=== PATIENT | male | born 1960 | race Caucasian/White ===

== ENCOUNTER 2018-01-08 11:00 | Outpatient (RCR) | payer BC, SELFPAY ==
--- NOTE | 2017-12-09 07:45 | HP.PTEVAL_ITS ---
Patient's Visit Information KACI MONCADA is a 57 year old M referred to Physical Therapy by Xiao Lorenzo NP.JAD with a diagnosis of S/P L3-L4 micro disectomy. Date of Evaluation: 12/06/17 Physical Therapist: Jeovany Sadler - Visit Plan Frequency: 2-3x /Week Duration: 4-6 Weeks Plan: Start with neutral spine core isometrics, wean from brace over next 3 weeks. Gradually progress lumbar ROM as tolerated. HS stretching bilat without dural effect. - Subjective Subjective: Pt. is here today for his initial evaluation with diagnosis of lumbar microdisectomy. Pt. has a R L3-L4 microdisectomy on 10/23/17. He had previously had one in August of the previous year and a fusion in 2011. Pt. reports going back to work after is last surgery and having increased pain with ultimately having marked R foot drop. He reports his foot drop as started to improve and is walking with minimal issues. He is pleased with his current progress. Pt. denies N/T in either LE. No changes in B/B. Pt. is to wear brace as needed, but wean from brace over the next 3 weeks. Pt. reports increased pain with: getting up and down, shaun in bed. He is still to not BLT at this point in time. 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 Pt. has to lift boxes upto 60lbs at work as well. Pt. is sleeping without issues and is hopeful to progress strength and ROM in order to get back to work without issues. Expected RTW date: January 15. - Pain R LOWER BACK Pain Intensity (Out of 10): 1 Pain Intensity Range: 4 - Objective POSTURE: Pt. has normal posture in stance. Pt. has slight reduced lumbar lordosis. Pt. has equal iliac crest heights. Pt. has equal wt. shift between bilateral LEs. PALPATION: Pt has well healed incision at lumbar spine, no signs of infection or redness. NEUROLOGICAL: Pt. has normal sensation to light and sharp touch of bilateral LEs. Pt. has 2+ achilles and patellar DTR bilaterally. Pt. is able to rise onf heels and toes without LOB, increased difficulty with R ankle DF in stance. ROM: lumbar spine: flexion min/mod loss ( tight), ext min loss (tight), SB R nil loss NE, SB L nil loss NW, rotation R min loss (tight), rotation L min loss (tight). Pt. has tight bilateral HS and tigth hip flexors bilat. Normal hip ROM noted. MMT: RLE- ankle PF 5/5, DF 4/5; knee- ext 4+/5, flexion 4+/5; hip- flexion 4/5 mild increase NW, abd 4/5, ext 4/ 5. LLE- ankle 5/5 throughout; knee 5/5 throghoutl hip- flexion 4+/5 mild increase NW, abd 4+/5, ext 4+/5. Core strength- poor+. GAIT: Pt. ambulates without AD. Pt. has normal step length, decreased tempo, has adequate R foot clearance, slight reduced control with R ankle DF with gait. STAIRS: Pt. negotiates with 1 HR with reciprocal pattern, marked RLE functional weakness with descending. - Goals Goal 1:: Pt. to be I with HEP. Goal Time Frame: 4-6 Weeks Goal 2:: Pt. to have increased lumbar ROM by 25% in all effected ranges of motion. Goal Time Frame: 4-6 Weeks Goal 3:: Pt. to walk and rise for chair without increase in symptoms. Goal Time Frame: 4-6 Weeks Goal 4:: Pt. to have increased BLE and core strength by 1/2 grade reducing stress applied to L/S with all functional mobility. Goal Time Frame: 4-6 Weeks Goal 5:: Pt. to ambulate unlimited distances without increase in symptoms. Goal Time Frame: 4-6 Weeks Goal 6:: Pt. to resume all work activities without increase in symptoms. Goal Time Frame: 4-6 Weeks - Rehabilitation Potential Physical Therapy Diagnosis: Pt. has signs and symptoms consistent with BLE/core weakness, lumbar hypombility, and gait difficulty after having a L3-L4 microdisectomy. Pt. would benefit from PT to increase lumbar ROM, wean from brace, increase core and BLE strength and progress tolerance to all walking and work related activities. Rehabilitation Potential: Excellent - Anticipated Interventions Patient/Client Instruction: Educate patient on: Condition, Plan of Care, Risk Factors, Benefits of Fitness Program For the Purpose of:: To foster healthy habits, To improve decision making, To facilitate caregiver knowledge, To improve self management, To prevent re-injury , To improve ability to perform tasks related to life management, To improve tolerance to ADL's Therapeutic Exercise to Include: Strength training, Power training, Endurance training, Postural training, Flexibilty training, Passive ROM, Active ROM, Dynamic Lumbar Stabilization For the Purpose of:: To decrease pain, To increase ROM, To improve nutrient delivery to tissue, To increase oxygenation perfusion, To improve muscle performance and motor function, To improve ability to perform ADL's, To improve health of tissue, To decrease soft tissue restriction, To increase flexibility/ ROM, To improve endurance IF ES: Yes Cryotherapy (ice pack, ice massage): Yes Thank you for the opportunity to evaluate your patient. For Medicare and Medicare HMO plans, please review the plan of care and approve it. It will need to be FAXED BACK to us at [phone] for Medicare purposes. Please let me know if there are questions or concerns regarding this plan of care. Physician Signature: Date:
--- NOTE | 2018-01-08 11:31 | HP.PTREVAL_ITS ---
Xiao Lorenzo, , RICHARD.JAD It has been my pleasure to treat KACI MONCADA over the last 12 visits for S/P L3- L4 micro disectomy. Please see the progress note below for an update on the physical therapy plan of care! Subjective: Pt. reports I am doing better today. Pt. reports using a topical cream the other day and having relief in his knees and back. Pt. reports having 2/10 pain currently in lumbar spine, its just an ache. Objective/Function: LUMBAR ROM- flexion min loss mild increase NW, ext nil loss NE, SB R nil loss NE, SB L nil loss NE, rotation R nil/min loss NE, rotation L nil/min loss NE. MMT- 5/5 throughout; core strength fair. GAIT- Pt. ambulates with slight R lateral lean during stance phase on R side. Pt. reports having mild incerase in symptosm during R stance phase. STAIRS- reciprocal without increase in symptoms no HR required. PAIN- 2/10 no increase with PT. Plan Plan: Pt. to follow up with physician tomorrow and determine best course of action and if further PT is required. Goals Goal 1:: Pt. to be I with HEP. Goal Time Frame: 4-6 Weeks Goal Progress: Goal Met Goal 2:: Pt. to have increased lumbar ROM by 25% in all effected ranges of motion. Goal Time Frame: 4-6 Weeks Goal Progress: Goal Met Goal 3:: Pt. to walk and rise for chair without increase in symptoms. Goal Time Frame: 4-6 Weeks Goal Progress: Goal Met Goal 4:: Pt. to have increased BLE and core strength by 1/2 grade reducing stress applied to L/S with all functional mobility. Goal Time Frame: 4-6 Weeks Goal Progress: Goal Met Goal 5:: Pt. to ambulate unlimited distances without increase in symptoms. Goal Time Frame: 4-6 Weeks Goal Progress: Progressing Goal 6:: Pt. to resume all work activities without increase in symptoms. Goal Time Frame: 4-6 Weeks Goal Progress: Progressing Anticipated Interventions Patient/Client Instruction: Educate patient on: Condition, Plan of Care, Risk Factors, Benefits of Fitness Program For the Purpose of:: To foster healthy habits, To improve decision making, To facilitate caregiver knowledge, To improve self management, To prevent re-injury , To improve ability to perform tasks related to life management, To improve tolerance to ADL's Therapeutic Exercise to Include: Strength training, Power training, Endurance training, Postural training, Flexibilty training, Passive ROM, Active ROM, Dynamic Lumbar Stabilization For the Purpose of:: To decrease pain, To increase ROM, To improve nutrient delivery to tissue, To increase oxygenation perfusion, To improve muscle performance and motor function, To improve ability to perform ADL's, To improve health of tissue, To decrease soft tissue restriction, To increase flexibility/ ROM, To improve endurance IF ES: Yes Cryotherapy (ice pack, ice massage): Yes Please do not hesitate to contact me at [phone] by phone or Fax: if you have questions or concerns regarding this new plan of care! Sincerely, Jeovany Sadler
--- NOTE | 2018-03-16 20:02 | HP.PTDCSUM ---
HP - PT D/C Summary It has been my pleasure to treat KACI MONCADA under orders from Xiao Lorenzo, , for the diagnosis of S/P L3-L4 micro disectomy for a total of 12 visit(s). Discharge Date: Please see the following information for a summary of their discharge status. - Subjective Subjective: Pt. reports I am doing better today. Pt. reports using a topical cream the other day and having relief in his knees and back. Pt. reports having 2/10 pain currently in lumbar spine, its just an ache. - Pain R LOWER BACK Pain Intensity (Out of 10): 2 - Overall Improvement % Improvement: 70 - Objective Objective/Function: LUMBAR ROM- flexion min loss mild increase NW, ext nil loss NE, SB R nil loss NE, SB L nil loss NE, rotation R nil/min loss NE, rotation L nil/min loss NE. MMT- 5/5 throughout; core strength fair. GAIT- Pt. ambulates with slight R lateral lean during stance phase on R side. Pt. reports having mild incerase in symptosm during R stance phase. STAIRS- reciprocal without increase in symptoms no HR required. PAIN- 2/10 no increase with PT. - Goals Goal 1:: Pt. to be I with HEP. Goal Progress: Goal Met Goal 2:: Pt. to have increased lumbar ROM by 25% in all effected ranges of motion. Goal Progress: Goal Met Goal 3:: Pt. to walk and rise for chair without increase in symptoms. Goal Progress: Goal Met Goal 4:: Pt. to have increased BLE and core strength by 1/2 grade reducing stress applied to L/S with all functional mobility. Goal Progress: Goal Met Goal 5:: Pt. to ambulate unlimited distances without increase in symptoms. Goal Progress: Progressing Goal 6:: Pt. to resume all work activities without increase in symptoms. Goal Progress: Progressing - Plan Plan: Pt. to follow up with physician tomorrow and determine best course of action and if further PT is required. - D/C Information If there are questions or concerns regarding this patient's physical therapy, please feel free to call me at [phone]. Thank you for the referral of this patient. Sincerely, Jeovany Sadler
== END 2018-01-08 19:00 | disposition home or self-care (01) ==
LOC: PT 11:00
PROVIDERS: Family Provider Family Medicine; PCP Family Medicine; Visit Provider Nurse Practitioner Acute Care
DX: Z98.890 Other specified postprocedural states (principal)
CPT/HCPCS: 97110; 97161

== ENCOUNTER → 2018-03-05 12:09 | Outpatient (CLI) | payer BC, SELFPAY ==
[2018-03-05 14:18] LABS: Anion Gap 8 (5-15); BUN 12 mg/dL (7-18); BUN/Creat Ratio 14.9 RATIO (10-20); Calcium,Total 8.6 mg/dL (8.5-10.1); Chloride 106 mmol/L (98-107); Cholesterol 181 mg/dL (200); Creatinine, Serum 0.81 mg/dL (0.70-1.30); EST Glomerular Filtration Rate 104 mL/min (>60); Est Glom Filt Rate - Afr Amer 126 mL/min (>60); Glucose 109 mg/dL (74-106); High Density Lipoprotein 75 mg/dL; Sodium Level 139 mmol/L (136-145); Triglycerides 72 mg/dL; Very Low Density Lipoprotein 14 mg/dL (5-40)
== END ==
PROVIDERS: Family Provider Family Medicine; PCP Family Medicine; Visit Provider Family Medicine
DX: I10 Essential (primary) hypertension (principal)
CPT/HCPCS: 36415; 80048; 80061

== ENCOUNTER → 2018-09-10 11:25 | Outpatient (CLI) | payer BC, SELFPAY ==
[2017-03-05 10:11] VITALS: BMI 25.0
[2018-09-10 14:21] LABS: Anion Gap 6 (5-15); BUN 12 mg/dL (7-18); Calcium,Total 8.4 mg/dL (8.5-10.1); Chloride 108 mmol/L (98-107); Cholesterol 198 mg/dL (200); Creatinine, Serum 0.75 mg/dL (0.70-1.30); EST Glomerular Filtration Rate 114 mL/min (>60); Est Glom Filt Rate - Afr Amer 137 mL/min (>60); Glucose 115 mg/dL (74-106); High Density Lipoprotein 82 mg/dL; Potassium 4.6 mmol/L (3.5-5.1); Sodium Level 139 mmol/L (136-145); Triglycerides 60 mg/dL; Very Low Density Lipoprotein 12 mg/dL (5-40)
--- OUTSIDE RECORDS SUMMARY | 2018-11-05 20:16 | XMS RPT_ITS ---
:1960 Author Organization OHIP Care Team Providers Name Role Phone Xiao Lorenzo NP-Shae Attending Unavailable Xiao Lorenzo NP-Shae Referring Unavailable Valentín Darby Primary Care Unavailable Valentín Darby Attending Unavailable Valentín Darby Primary Care Unavailable Valentín Darby Attending Unavailable Valentín Darby Primary Care Unavailable PROBLEMS PROBLEMS DATE TYPE CONDITION / CODE ATTENDING STATUS SOURCE 03/06/2018 Unknown I10 - Essential Valentín Darby Active Raji (primary) Formerly [facility], [facility] hypertension / Hospital I10(ICD-10) Repository 04/03/2018 Unknown Z98.890 - Other Opsitradha Active Raji 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 criteria. Please note revised GLUCOSE reference range effective 2017. LAB L501.1000 7-18 mg/dL Normal BUN 12 LAB L501.1100 0.70-1.30 mg/dL Normal CREAT,SERUM 0.75 Result Comment: The validity of the calculated GFR AND GFRAA in patients over 70 years has not been determined. Clinical correlation is essential. LAB L501.1110 >60 mL/min Normal EST GFR 114 Result Comment: Non- GFR Calc LAB L501.1115 >60 mL/min Normal EST GFR - AA 137 Result Comment: GFR Calc LAB L501.1300 10-20 RATIO Normal BUN/CRE 16.0 LAB L501.2200 8.5-10.1 mg/dL Low CA 8.4 LAB L501.5300 136-145 mmol/L NA Normal 139 LAB L501.5600 3.5-5.1 mmol/L K Normal 4.6 LAB L501.5900 98-107 mmol/L High CL 108 LAB L501.6100 21.0-32.0 mmol/L Normal CO2 25.0 LAB L501.6200 5-15 Normal GAP 6 Performed By: #### L500.2500, L500.4100 #### [facility] [address] [place], [place], [address] LIPID PROFILE Collected: 09/10/2018 Status: F Source: PALATINE 11:28 AM [facility] REPOSITORY TYPE CODE TESTS RESULT OUT OF RANGE REFERENCE UNITS LAB L501.4900 200 mg/dL Normal CHOL 198 Result Comment: <200 mg/dL Desirable 200-240 mg/dL Borderline >240 mg/dL High Risk LAB L501.5000 mg/dL Normal TRIG 60 Result Comment: The drugs N-Acetylcysteine and Metamizole may falsely depress this assay. Serum Triglycerides Reference Interval Normal <150 mg/dL Borderline high 150 - 199 mg/dL High 200 - 499 mg/dL Very High > or = 500 mg/dL LAB L501.6400 mg/dL Normal HDL 82 Result Comment: The drugs N-Acetylcysteine and Metamizole may falsely depress this assay. Reference Range HDL <40 mg/dL Low HDL Cholesterol HDL >or= 60 mg/dL High HDL Cholesterol LAB L501.6500 0-130 mg/dL Normal LDL 104 LAB L501.6600 5-40 mg/dL Normal VLDL 12 Performed By: #### L500.2500, L500.4100 #### [facility] [address] [place], [address] PT D/C SUMMARY (1) Observed: 03/16/2018 Status: F Source: PALATINE 8:02 PM [facility] REPOSITORY [facility] [address] [place], [place] [address] Fax REHABILITATION SERVICES DISCHARGE SUMMARY MR#: [id number] Acct: [id number] Name: KACI MONCADA Rep #: [id number] : 1960 57 From: Jeovany Sadler DPT Referring Dr.: Xiao Lorenzo Status: REG RCR Insurance: [email or web address] SELF PAY INSURANCE HP - PT D/C Summary It has been my pleasure to treat KACI MONCADA under orders from Xiao Lorenzo, , for the diagnosis of S/P L3-L4 micro disectomy for a total of 12 visit(s). Discharge Date: Please see the following information for a summary of their discharge status. - Subjective Subjective: Pt. reports I am doing better today. Pt. reports using a topical cream the other day and having relief in his knees and back. Pt. reports having 2/10 pain currently in lumbar spine, its just an ache. - Pain R LOWER BACK Pain Intensity (Out of 10): 2 - Overall Improvement % Improvement: 70 - Objective Objective/Function: LUMBAR ROM- flexion min loss mild increase NW, ext nil loss NE, SB R nil loss NE, SB L nil loss NE, rotation R nil/min loss NE, rotation L nil/min loss NE. MMT- 5/5 throughout; core strength fair. GAIT- Pt. ambulates with slight R lateral lean during stance phase on R side. Pt. reports having mild incerase in symptosm during R stance phase. STAIRS- reciprocal without increase in symptoms no HR required. PAIN- 2/10 no increase with PT. - Goals Goal 1:: Pt. to be I with HEP. Goal Progress: Goal Met Goal 2:: Pt. to have increased lumbar ROM by 25% in all effected ranges of motion. Goal Progress: Goal Met Goal 3:: Pt. to walk and rise for chair without increase in symptoms. Goal Progress: Goal Met Goal 4:: Pt. to have increased BLE and core strength by 1/2 grade reducing stress applied to L/S with all functional mobility. Goal Progress: Goal Met Goal 5:: Pt. to ambulate unlimited distances without increase in symptoms. Goal Progress: Progressing Goal 6:: Pt. to resume all work activities without increase in symptoms. Goal Progress: Progressing - Plan Plan: Pt. to follow up with physician tomorrow and determine best course of action and if further PT is required. - D/C Information If there are questions or concerns regarding this patient's physical therapy, please feel free to call me at [phone]. Thank you for the referral of this patient. Sincerely, Jeovany Sadler <Electronically signed by Jeovany Sadler DPT> 03/16/182001 CC: Xiao Darby MD CLS Signed BASIC METABOLIC Collected: 03/05/2018 Status: F Source: RAJI PROFILE (BMP) 12:09 PM [facility] REPOSITORY TYPE CODE TESTS RESULT OUT OF RANGE REFERENCE UNITS LAB L501.0100 74-106 mg/dL High GLU 109 Result Comment: Fasting Glucose result from 100 to 125 mg/dL suggests IMPAIRED HOMEOSTASIS per A.D.A. criteria. Please note revised GLUCOSE reference range effective 2017. LAB L501.1000 7-18 mg/dL Normal BUN 12 LAB L501.1100 0.70-1.30 mg/dL Normal CREAT,SERUM 0.81 Result Comment: The validity of the calculated GFR AND GFRAA in patients over 70 years has not been determined. Clinical correlation is essential. LAB L501.1110 >60 mL/min Normal EST GFR 104 Result Comment: Non- GFR Calc LAB L501.1115 >60 mL/min Normal EST GFR - AA 126 Result Comment: GFR Calc LAB L501.1300 10-20 RATIO Normal BUN/CRE 14.9 LAB L501.2200 8.5-10.1 mg/dL CA Normal 8.6 LAB L501.5300 136-145 mmol/L NA Normal 139 LAB L501.5600 3.5-5.1 mmol/L K Normal 5.0 Result Comment: Slight Hemolysis, Result may be falsely increased. LAB L501.5900 98-107 mmol/L Normal CL 106 LAB L501.6100 21.0-32.0 mmol/L Normal CO2 25.0 LAB L501.6200 5-15 Normal 8 GAP Performed By: #### L500.2500, L500.4100 #### [facility] [address] [place], [address] LIPID PROFILE Collected: 03/05/2018 Status: F Source: PALATINE 12:09 PM [facility] REPOSITORY TYPE CODE TESTS RESULT OUT OF RANGE REFERENCE UNITS LAB L501.4900 200 mg/dL Normal CHOL 181 Result Comment: <200 mg/dL Desirable 200-240 mg/dL Borderline >240 mg/dL High Risk LAB L501.5000 mg/dL Normal TRIG 72 Result Comment: The drugs N-Acetylcysteine and Metamizole may falsely depress this assay. Serum Triglycerides Reference Interval Normal <150 mg/dL Borderline high 150 - 199 mg/dL High 200 - 499 mg/dL Very High > or = 500 mg/dL LAB L501.6400 mg/dL Normal HDL 75 Result Comment: The drugs N-Acetylcysteine and Metamizole may falsely depress this assay. Reference Range HDL <40 mg/dL Low HDL Cholesterol HDL >or= 60 mg/dL High HDL Cholesterol LAB L501.6500 0-130 mg/dL Normal LDL 92 LAB L501.6600 5-40 mg/dL Normal VLDL 14 Performed By: #### L500.2500, L500.4100 #### [facility] [address] [place] [place], [address] RE-EVALUATION - PT (1) Observed: 01/08/2018 Status: F Source: PALATINE 11:31 AM [facility] REPOSITORY [facility] [address] [place], [place] [address] Fax REEVALUATION / MEDICARE RECERTIFICATION PHYSICAL THERAPY MR#: [id number] Acct: [id number] Name: KACI MONCADA Rep #: [id number] : 1960 57 From: Jeovany Sadler DPT Referring Dr.: Xiao Lorenzo Status: REG RCR Insurance: [employer] SELF PAY INSURANCE Xiao Lorenzo, , RICHARD.JAD It has been my pleasure to treat KACI MONCADA over the last 12 visits for S/P L3-L4 micro disectomy. Please see the progress note below for an update on the physical therapy plan of care! Subjective: Pt. reports I am doing better today. Pt. reports using a topical cream the other day and having relief in his knees and back. Pt. reports having 2/10 pain currently in lumbar spine, its just an ache. Objective/Function: LUMBAR ROM- flexion min loss mild increase NW, ext nil loss NE, SB R nil loss NE, SB L nil loss NE, rotation R nil/min loss NE, rotation L nil/min loss NE. MMT- 5/5 throughout; core strength fair. GAIT- Pt. ambulates with slight R lateral lean during stance phase on R side. Pt. reports having mild incerase in symptosm during R stance phase. STAIRS- reciprocal without increase in symptoms no HR required. PAIN- 2/10 no increase with PT. Plan Plan: Pt. to follow up with physician tomorrow and determine best course of action and if further PT is required. Goals Goal 1:: Pt. to be I with HEP. Goal Time Frame: 4-6 Weeks Goal Progress: Goal Met Goal 2:: Pt. to have increased lumbar ROM by 25% in all effected ranges of motion. Goal Time Frame: 4-6 Weeks Goal Progress: Goal Met Goal 3:: Pt. to walk and rise for chair without increase in symptoms. Goal Time Frame: 4-6 Weeks Goal Progress: Goal Met Goal 4:: Pt. to have increased BLE and core strength by 1/2 grade reducing stress applied to L/S with all functional mobility. Goal Time Frame: 4-6 Weeks Goal Progress: Goal Met Goal 5:: Pt. to ambulate unlimited distances without increase in symptoms. Goal Time Frame: 4-6 Weeks Goal Progress: Progressing Goal 6:: Pt. to resume all work activities without increase in symptoms. Goal Time Frame: 4-6 Weeks Goal Progress: Progressing Anticipated Interventions Patient/Client Instruction: Educate patient on: Condition, Plan of Care, Risk Factors, Benefits of Fitness Program For the Purpose of:: To foster healthy habits, To improve decision making, To facilitate caregiver knowledge, To improve self management, To prevent re-injury, To improve ability to perform tasks related to life management, To improve tolerance to ADL's Therapeutic Exercise to Include: Strength training, Power training, Endurance training, Postural training, Flexibilty training, Passive ROM, Active ROM, Dynamic Lumbar Stabilization For the Purpose of:: To decrease pain, To increase ROM, To improve nutrient delivery to tissue, To increase oxygenation perfusion, To improve muscle performance and motor function, To improve ability to perform ADL's, To improve health of tissue, To decrease soft tissue restriction, To increase flexibility/ROM, To improve endurance IF ES: Yes Cryotherapy (ice pack, ice massage): Yes Please do not hesitate to contact me at [phone] by phone or if you have questions or concerns regarding this new plan of care! Sincerely, Jeovany Sadler <Electronically signed by Jeovany Sadler DPT> 01/08/18 1131 CC: Xiao Lorenzo; Valentín Darby MD CLS Signed For Medicare only, by signing this I certify the plan of care. Physicians Signature Date INITAL EVALUATION (1) Observed: 12/09/2017 Status: F Source: PALATINE - PT 7:45 AM [facility] REPOSITORY [facility] [address] [place] [address] Fax REHABILITATION SERVICES INITIAL EVALUATION MR#: [id number] Acct: [id number] Name: KACI MONCADA Rep #: [id number] : 1960 57 From: Jeovany Sadler DPT Referring Dr.: Xiao Lorenzo Status: REG RCR Insurance: [employer] SELF PAY INSURANCE Patient's Visit Information KACI MONCADA is a 57 year old M referred to Physical Therapy by Xiao Lorenzo NP.KOPSIT with a diagnosis of S/P L3-L4 micro disectomy. Date of Evaluation: 12/06/17 Physical Therapist: Jeovany Sadler - Visit Plan Frequency: 2-3x /Week Duration: 4-6 Weeks Plan: Start with neutral spine core isometrics, wean from brace over next 3 weeks. Gradually progress lumbar ROM as tolerated. HS stretching bilat without dural effect. - Subjective Subjective: Pt. is here today for his initial evaluation with diagnosis of lumbar microdisectomy. Pt. has a R L3-L4 microdisectomy on 10/23/17. He had previously had one in August of the previous year and a fusion in 2011. Pt. reports going back to work after is last surgery and having increased pain with ultimately having marked R foot drop. He reports his foot drop as started to improve and is walking with minimal issues. He is pleased with his current progress. Pt. denies N/T in either LE. No changes in B/B. Pt. is to wear brace as needed, but wean from brace over the next 3 weeks. Pt. reports increased pain with: getting up and down, shaun in bed. He is still to not BLT at this point in time. 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 Pt. has to lift boxes upto 60lbs at work as well. Pt. is sleeping without issues and is hopeful to progress strength and ROM in order to get back to work without issues. Expected RTW date: January 15. - Pain R LOWER BACK Pain Intensity (Out of 10): 1 Pain Intensity Range: 4 - Objective POSTURE: Pt. has normal posture in stance. Pt. has slight reduced lumbar lordosis. Pt. has equal iliac crest heights. Pt. has equal wt. shift between bilateral LEs. PALPATION: Pt has well healed incision at lumbar spine, no signs of infection or redness. NEUROLOGICAL: Pt. has normal sensation to light and sharp touch of bilateral LEs. Pt. has 2+ achilles and patellar DTR bilaterally. Pt. is able to rise onf heels and toes without LOB, increased difficulty with R ankle DF in stance. ROM: lumbar spine: flexion min/mod loss (tight), ext min loss (tight), SB R nil loss NE, SB L nil loss NW, rotation R min loss (tight), rotation L min loss (tight). Pt. has tight bilateral HS and tigth hip flexors bilat. Normal hip ROM noted. MMT: RLE- ankle PF 5/5, DF 4/5; knee- ext 4+/5, flexion 4+/5; hip- flexion 4/5 mild increase NW, abd 4/5, ext 4/5. LLE- ankle 5/5 throughout; knee 5/5 throghoutl hip- flexion 4+/5 mild increase NW, abd 4+/5, ext 4+/5. Core strength- poor+. GAIT: Pt. ambulates without AD. Pt. has normal step length, decreased tempo, has adequate R foot clearance, slight reduced control with R ankle DF with gait. STAIRS: Pt. negotiates with 1 HR with reciprocal pattern, marked RLE functional weakness with descending. - Goals Goal 1:: Pt. to be I with HEP. Goal Time Frame: 4-6 Weeks Goal 2:: Pt. to have increased lumbar ROM by 25% in all effected ranges of motion. Goal Time Frame: 4-6 Weeks Goal 3:: Pt. to walk and rise for chair without increase in symptoms. Goal Time Frame: 4-6 Weeks Goal 4:: Pt. to have increased BLE and core strength by 1/2 grade reducing stress applied to L/S with all functional mobility. Goal Time Frame: 4-6 Weeks Goal 5:: Pt. to ambulate unlimited distances without increase in symptoms. Goal Time Frame: 4-6 Weeks Goal 6:: Pt. to resume all work activities without increase in symptoms. Goal Time Frame: 4-6 Weeks - Rehabilitation Potential Physical Therapy Diagnosis: Pt. has signs and symptoms consistent with BLE/core weakness, lumbar hypombility, and gait difficulty after having a L3- L4 microdisectomy. Pt. would benefit from PT to increase lumbar ROM, wean from brace, increase core and BLE strength and progress tolerance to all walking and work related activities. Rehabilitation Potential: Excellent - Anticipated Interventions Patient/Client Instruction: Educate patient on: Condition, Plan of Care, Risk Factors, Benefits of Fitness Program For the Purpose of:: To foster healthy habits, To improve decision making, To facilitate caregiver knowledge, To improve self management, To prevent re-injury, To improve ability to perform tasks related to life management, To improve tolerance to ADL's Therapeutic Exercise to Include: Strength training, Power training, Endurance training, Postural training, Flexibilty training, Passive ROM, Active ROM, Dynamic Lumbar Stabilization For the Purpose of:: To decrease pain, To increase ROM, To improve nutrient delivery to tissue, To increase oxygenation perfusion, To improve muscle performance and motor function, To improve ability to perform ADL's, To improve health of tissue, To decrease soft tissue restriction, To increase flexibility/ROM, To improve endurance IF ES: Yes Cryotherapy (ice pack, ice massage): Yes Thank you for the opportunity to evaluate your patient. For Medicare and Medicare HMO plans, please review the plan of care and approve it. It will need to be FAXED BACK to us at [phone] for Medicare purposes. Please let me know if there are questions or concerns regarding this plan of care. Physician Signature: Date: <Electronically signed by Jeovany OLIVEIRAT> 12/09/17 0745 CC: Xiao Lorenzo; Valentín Darby MD CLS Signed For Medicare only, by signing this I certify the plan of care. Physicians Signature Date ALLERGIES ALLERGIES DATE TYPE / CODE NAME / CODE REACTION SEVERITY SOURCE 03/05/2017 Drug No Known Unknown Raji [facility] Allergy/4160 Allergies/F00 [facility] 39855(SNOMED [id number](RXNOR Repository CT) M) ENCOUNTERS ENCOUNTERS ADMIT/DISCHARGE ACCOUNT ADMITTING ENCOUNTER LOCATION SOURCE NUMBER CLASS 09/10/2018 [id number] Ambulatory [place] [facility] ing:MFPLAB Repository 03/05/2018 [id number] Ambulatory Raji [place] [facility] ing:MFPLAB Repository 01/08/2018/ [id number] [place] [facility] ing:PT Repository PAYERS PAYERS ENCOUNTER GUARANTOR PAYER SUBSCRIBER SOURCE 09/10/2018 Kaci Umw771 Primary Kaci FoxDOB: Raji Owens Insurance:ANTHEMPolic [id number] [facility] [place] Number: Hospital [id number]: (330 [id number] Repository [phone] () Date:6573-16-78IC [address], [place] [address]SL: 09/10/2018 Secondary NOT GIVENUNK [place] Insurance:[facility]LF [facility]Y [facility]: Effective Repository Date:2018-09-10 03/05/2018 Kaci Moncada702 Primary Kaci MoncadaDOB: Raji Owens Insurance:ANTHEMPolic [id number] [facility] [place] [facility] [address]Qpc: (330 [id number] Repository [phone] () Date:5758-07-65RI [address], [place] [address]MC: 03/05/2018 Secondary NOT GIVENUNK Raji Insurance:SELF PAY [facility] Number: Effective Repository Date:2018-03-05 01/08/2018 Kaci Moncada702 Primary Kaci MoncadaDOB: Raji Owens Insurance:ANTHEMPolic [id number] [facility]: [facility] [id number]: (330 [id number] Repository [phone] () Date:[id number] [address], [place] [address]XG: 01/08/2018 Secondary NOT GIVENUNK Raji Insurance:SELF PAY [facility]: Effective Repository Date:2017-12-03
--- OUTSIDE RECORDS SUMMARY | 2018-11-05 20:16 | XMS RPT_ITS ---
:1960 Author Organization [facility] Address [address] [place] [id number] Phone Care Team Providers Name Role Phone Maura PEARL, Xiao Brown Reason for Visit Reason For Visit Description Start Date Postop - subsequent visit Preliminary reason for visit data, not yet signed by the author as of back post revision microdiscectomy right L3-L4 on 10/23/2017 Preliminary reason for visit data, not yet signed by the author as of Chief Complaint Chief Complaint Description Start Date back post revision microdiscectomy right L3-L4 on 10/23/2017 Preliminary chief complaint data, not yet signed by the author as of Instructions Instruction Description Start Date CompletedPlease follow-up with Primary Care Physician or Venue Manager for treatment or adjustment of medication regarding elevated blood pressure.Patient advised to follow-up with Primary Care Physician for BMI management. 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 SPECIALIST TABS Conditions or Problems Problem Name Problem Onset Status Entry Provider Comment Standard Annotate Code Date Date Description S/P lumbar 241437239 Active Xiao History of microdiscect (SNOMED CT) 11/07 11/07 [place] operative trish 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 CUT 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 OPERATOR procedure on lumbar spinal structure HNP 936176408 Active Tammi Carter Prolapsed REcurrent (herniated (SNOMED CT) 11/26 11/26 [place] lumbar L4-5 nucleus 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 CUT OFF SAW OPERATOR intervertebral pulposus), disc lumbar Right leg 427312266 Active Tammi Carter Monoparesis - Acute weakness (SNOMED CT) 11/12 11/12 [place] leg onset 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 CUT OFF SAW OPERATOR Low back 194740746 Active Tammi Carter Low back pain pain (SNOMED CT) 11/12 11/12 [place] 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 CUT OFF SAW OPERATOR 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 Xiao 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 CUT OFF SAW OPERATOR Lumbar disc 550443351 Active Xiao Lumbar disc herniation (SNOMED CT) 04/30 04/30 [place] prolapse with with 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 CUT OFF SAW OPERATOR radiculopathy radiculopath y History of 71660373869 Active Xiao History of PLIF lumbar 106 (SNOMED 04/30 04/30 [place] lumbar fusion spinal CT) 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 CUT OFF SAW OPERATOR fusion Allergies, Adverse Reactions, Alerts Observed no known allergies at Social History Concept Description Observation Name Observation Value Units Start Date Tobacco use and SMOK ADVICE Yes exposure Preliminary social history data, not yet signed by the author as of Vital Signs Date Name Value Unit Description BMI (Body Mass 26.60 kg/m2 Body Mass Index Index) [Ratio] Preliminary vital sign data, not yet signed by the author as of BP Diastolic 88 mm[Hg] blood pressure, diastolic Preliminary vital sign data, not yet signed by the author as of BP Diastolic 88 mm[Hg] blood pressure, diastolic, second observation Preliminary vital sign data, not yet signed by the author as of BP Systolic 153 mm[Hg] blood pressure, systolic Preliminary vital sign data, not yet signed by the author as of BP Systolic 151 mm[Hg] blood pressure, systolic, second observation Preliminary vital sign data, not yet signed by the author as of Heart Rate 82 /min pulse rate E&M Preliminary vital sign data, not yet signed by the author as of Height 180 cm height in centimeters E&M Preliminary vital sign data, not yet signed by the author as of Height 71 [in_us] height E&M Preliminary vital sign data, not yet signed by the author as of Weight Measured 86 kg weight in kilograms E&M Preliminary vital sign data, not yet signed by the author as of Weight Measured 190 [lb_av] weight E&M Preliminary vital sign data, not yet signed by the author as of Results Date Name Value Unit Range Flag Description Office Visit: Postop - subsequent visit, Rm: PT3 MEDS REVIEW Done Documentation of current medications (procedure) Preliminary observation data, not yet signed by the author as of SMOK ADVICE Yes Smoking cessation education (procedure) Preliminary observation data, not yet signed by the author as of Preliminary observation data, not yet signed by the author as of Clinical Summary: HMSPatientID OOP account number Procedures Code Procedure Name Date Entry Date G8730 Pain assessment documented as positive - follow-up documented G8427 Current medications documented 4004F Tobacco screening was positive - cessation counseling received G8417 BMI documented as above normal parameters - follow-up documented G8950 Blood pressure outside of normal parameters - follow-up documented [facility]-[id number] Patient Encounter Medications Administered No information available. Immunizations No information available. Advance Directives There may be information available, but it has not been provided by the sender. Assessments There may be information available, but it has not been provided by the sender. Review of Systems There may be information available, but it has not been provided by the sender. Family History There may be information available, but it has not been provided by the sender. History of Past Illness There may be information available, but it has not been provided by the sender. History of Present Illness There may be information available, but it has not been provided by the sender.
== END ==
PROVIDERS: Family Provider Family Medicine; PCP Family Medicine; Visit Provider Family Medicine
DX: I10 Essential (primary) hypertension (principal)
CPT/HCPCS: 36415; 80048; 80061

== ENCOUNTER 2018-12-10 11:23 | Day surgery (SDC) | payer BC, SELFPAY ==
[2018-12-01 09:34] VITALS: BMI 24.3
--- NOTE | 2018-12-10 11:38 | EKG12_ITS ---
Test Reason : PREOP Blood Pressure : / mmHG Vent. Rate : 073 BPM Atrial Rate : 073 BPM P-R Int : 150 ms QRS Dur : 102 ms QT Int : 378 ms P-R-T Axes : 059 052 043 degrees QTc Int : 416 ms Normal sinus rhythm Normal ECG When compared with ECG of 11-JAN-2012 13:09, No significant change was found Confirmed by SHERWIN FOWLER, JUSTIN ([id number]), manuscript editor TIN MURILLO ([id number]) on 12/16/2018 1:49:19 PM Referred By: Mayco Juarez Confirmed By:JUSTIN COURTNEY MD
[2018-12-10 11:52] VITALS: BP 117/71; PULSE 74; RESP 18; TEMP 37.4; O2SAT 97; BMI 23.0
[2018-12-10 11:53] LABS: Hematocrit 47.1 % (40-54); Hemoglobin 15.9 g/dl (13.0-16.5); Mean Corp Hgb Conc 33.8 g/gl (32-36); Mean Corpuscular Hgb 31.4 pg (27.0-32.0); Mean Corpuscular Volume 92.9 fL (80-94); Mean Platelet Vol. 9.1 fl (6.2-12.0); Platelet Count 263 K/mm3 (150-450); RBC Distribution Width CV 12.7 % (11.6-14.6); RBC Distribution Width SD 42.5 fl (35.1-43.9); Red Blood Count 5.07 M/mm3 (4.6-6.2); Scan Indicated on CBC? Y/N NO; White Blood Count 6.2 K/mm3 (4.4-11.0)
[2018-12-10 12:17] LABS: Anion Gap 3 (5-15); BUN 9 mg/dL (7-18); BUN/Creat Ratio 10.4 RATIO (10-20); Calcium,Total 8.8 mg/dL (8.5-10.1); Chloride 104 mmol/L (98-107); Creatinine, Serum 0.86 mg/dL (0.70-1.30); EST Glomerular Filtration Rate 96 mL/min (>60); Est Glom Filt Rate - Afr Amer 116 mL/min (>60); Estimated Creatinine Clearance 97.98 ml/min; Glucose 115 mg/dL (74-106); Potassium 5.2 mmol/L (3.5-5.1); Sodium Level 136 mmol/L (136-145)
[2018-12-10] MEDS: Bupivacaine Mpf 0.5% 30 ML VIAL (12:24)
[2018-12-10] MEDS: Cefazolin 2 GM in 0.9% Normal Saline 100 ML IV (13:02)
--- NOTE | 2018-12-10 13:17 | PCM.OPRPT ---
Problem List (1) Bilateral inguinal hernia (BIH) Status: Acute Qualifiers: Obstruction and gangrene presence: without obstruction or gangrene Recurrence: non-recurrent Qualified Code(s): K40.20 - Bilateral inguinal hernia, without obstruction or gangrene, not specified as recurrent Report of Operation Date of Procedure: 12/10/18 Pre-Operative Diagnosis: Left inguinal hernia Post-Operative Diagnosis: bilateral inguinal hernias Surgery/Procedure Performed:: Laparoscopic bilateral inguinal hernia repairs with mesh Type of Anesthesia:: General Anesthesiologist: Andrew Hoyt Estimated Blood Loss (mL): < 25 cc Description of Procedure: Was brought into the operating room placed in the supine position under excellent general trach intubation Torres catheter was placed the abdomen was sterilely prepped draped in usual fashion. Local was injected supraumbilically. Curvilinear incision was made. Dissection was carried down to the fascia. The fascia was grasped with a Mirna. Varies needle was placed inside the abdomen. The abdomen was insufflated to 15 torr. A 10/12 trocar was placed without difficulty. It was flank by 2 #5 trochars both placed under direct visualization without injury to underlying structures. SPECT in the pelvis he had an obvious left inguinal hernia and is a bruise to the right side he did indeed have a right inguinal hernia. And this went along with his history of noticing a bulge in the right inguinal area in the past. Was a small piece of omentum stuck into his hernia which I was easily able to remove on the left side. Patient was placed in the headdown and rotated to the right. I scored the peritoneum on the left. I dissected down to Gavin's ligament. I dissected laterally dissecting out the cord and vessel structures and bringing the hernia sac back into the intra-abdominal area. I had excellent hemostasis. I continued further laterally. I placed a large 3 DMax mesh on the left side. I tacked it to Gavin's ligament with a pro-tacker. I tacked it superiorly and laterally with sparing tax. I reperitonealized area covering the mesh completely. The bed was then rotated to the left side I scored the peritoneum on the right I dissected down to Gavin's ligament and then dissected laterally dissecting the hernia sac free from the cord and vessel structures. I dissected further laterally. I had excellent hemostasis. I placed a medium 3 DMax mesh into the right side. I tacked it to Gavin's ligament with a pro-tacker. I tacked it superiorly and laterally with the pro-tacker and then I reperitonealized the area with a pro-tacker covering the mesh completely. Ilioinguinal nerve blocks were performed under direct visualization. I removed the trochars under direct visualization good hemostasis was noted. I closed the fascia the umbilical port figure stitch of 0 Vicryl. Skin incisions were closed with subtalar stitches of 4-0 Monocryl. Steri-Strips are applied sterile dressings were applied and the patient tolerated the procedure well. I did do a general inspection I did not see any signs of adhesions anywhere in the liver did look normal. - Admit VTE Documentation VTE Present on Admission: No VTE Mechan Device Prophylaxis: SCD's VTE Pharm Prophylaxis ordered?: No Reason prophylaxis not ordered:: Treatment Not Indicated
--- NOTE | 2018-12-10 13:19 | DCINST_ITS ---
Discharge Diet: Light diet - advance as tolerated Discharge Activity: Return to Normal Activity, May Drive - when you are no longer taking narcotic pain medications., May Shower - with the bandage in place 1-2 days after surgery. Lifting Restrictions: 20 pounds for 8 weeks. Additional Activity Instructions:: Climbing stairs is fine, walking is encouraged. Sitting in bed may be uncomfortable. Sitting up using your lateral muscles (sitting up sideways) is usually more comfortable. Do not drive, work heavy equipment of sign legal documents for 24 hours. If your hernia repair was an ingunial repair, you may have scrotal swelling, an ice pack and/or athletic support can provide more comfort. Pain medications may cause nausea, you should typically eat light foods as you take your pain medications. Pain medications may also cause constipation. If you have difficulty with this, discuss with your doctor. Call your doctor if your incision/area has: Continuous Slow Oozing, Sudden Increased Bleeding, Increased Pain/ Swelling, Increased Redness, Foul Smelling Discharge Call your doctor if you observe: Fever of 101 or Higher Suture Line Care: Avoid Pulling/Pushing, Avoid Pinching/Bending Additional Dressing/Incision Instructions:: Leave the operative bandage on for 2-3 days. When you remove the bandage, leave the steri-strips on place until your follow up appointment or they fall off. Allergies/Adverse Reactions: Allergies No Known Allergies Allergy (Verified 12/10/18 11:50) Medications to take at Discharge Oxycodone HCl/Acetaminophen [Oxycodon-Acetaminophen 7.5-325] 1 ea PO TID 03/05/17 losartan 100 mg-hydrochlorothiazide 25 mg tablet 1 tab PO DAILY 12/01/18 meloxicam 15 mg tablet 15 mg PO DAILY 12/01/18 Oxycodone HCl/Acetaminophen [Percocet 10-325 mg Tablet] 1 tab PO Q6H PRN PRN 7 Days #30 tab 12/10/18 The following prescriptions were given: Oxycodone HCl/Acetaminophen [Percocet 10-325 mg Tablet] 1 tab PO Q6H PRN PRN 7 Days #30 tab PRN Reason: Pain Primary Care Physician: Valentín Darby MD [Primary Care Provider] - Test Results: Test results from this visit will be discussed in further detail at your follow- up appointment, if applicable. Please Follow Up With: Mayco Juarez MD - [phone] When: Plan to have a follow up appointment in 7 days. Call to schedule.
[2018-12-10 14:11] VITALS: BP 117/71; BP 128/73; PULSE 90; RESP 16; TEMP 36.8; O2SAT 92
[2018-12-10 14:30] VITALS: BP 106/51; BP 117/71; PULSE 72; RESP 16; O2SAT 93
[2018-12-10 14:45] VITALS: BP 117/71; BP 97/47; PULSE 72; RESP 16; O2SAT 93
[2018-12-10 14:57] VITALS: BP 117/71; BP 120/72; PULSE 76; RESP 16; TEMP 36.9; O2SAT 94
[2018-12-10] MEDS: Acetaminophen 325 MG Tablet PO (15:32)
[2018-12-10] MEDS: oxyCODONE 5 MG Tablet 10 MG PO (15:33)
[2018-12-10 15:35] VITALS: BP 117/71; BP 125/76; PULSE 71; RESP 16; TEMP 37.1; O2SAT 97
== END 2018-12-10 15:57 | disposition home or self-care (01) ==
LOC: SDC 11:29 → AC 11:35
PROVIDERS: Anesthesiology; Family Provider Family Medicine; PCP Family Medicine; Referring Provider Surgery; Visit Provider Surgery
PROC: (CPT 49650; principal; 2018-12-10 13:15)
DX: K40.20 Bilateral inguinal hernia, without obstruction or gangrene, not specified as recurrent (principal); I10 Essential (primary) hypertension; F17.200 Nicotine dependence, unspecified, uncomplicated; Z79.891 Long term (current) use of opiate analgesic; Z79.899 Other long term (current) drug therapy
CPT/HCPCS: 49650; 36415; 80048; 85027; 93005; J7030; J7120; C1781; J2405

== ENCOUNTER 2019-02-16 19:53 | Emergency (ER) | payer BC, SELFPAY ==
[2019-02-16 19:53] VITALS: BP 164/94; PULSE 111; RESP 18; TEMP 36.8; O2SAT 97; BMI 23.0
[2019-02-16] MEDS: diazePAM 5 MG Tablet PO (20:18)
[2019-02-16] MEDS: HYDROmorphone 1 MG/ML Syringe 0.5 MG IV (20:18)
[2019-02-16] MEDS: Ondansetron 4 MG/2 ML Vial IV (20:18)
[2019-02-16] MEDS: HYDROmorphone 0.5 MG/0.5 ML SYRINGE IV (21:27)
--- NOTE | 2019-02-16 23:08 | ED.VISSUMM ---
- ER Visit Summary Date of Service: 02/16/19 Chief Complaint: Back pain History of Present Illness: The patient is a 58 M with history of chronic back pain. He has had prior laminectomy and fusion. He reports increased back pain recently and just finished a Medrol Dosepak. Today the pain became significantly worse. He gets intermittent spasms of pain with pain shooting down the lateral portion of his right leg. He gets a burning sensation down to the right mid thigh. No problems with bowel or bladder control. He denies any recent injury. Patient does follow with a back specialist through the [facility]. He is currently on 1 tab of Percocet twice a day for pain. Physical Examination: Blood pressure is 164/94 and heart rate is 111. Patient sitting upright in bed in significant discomfort. Heart is regular rate and rhythm. Lungs sounds clear. Abdomen is soft and nontender. Back examination was no midline tenderness P does have significant tenderness in the right lumbar paraspinal region. No overlying skin change noted. Lower extreme examination reveals strong distal pulses. No skin changes noted. He has 2+ bilateral patellar reflexes with good strength noted on exam. Test Results: [] Emergency Department Course and Treatment: Patient was initially given 0.5 mg of Dilaudid, Zofran, 5 mg p.o. Valium. On repeat evaluation patient stated his pain was about half of what it was when he initially came in. He unfortunately did have worsening of his pain with increased spasm following this. He was given a an additional 0.5 mg of Dilaudid. At this time on repeat examination patient is resting comfortably. He states his pain is back down to his normal baseline daily pain. He will continue his Percocet at home. He will be given prescription for Valium to help control muscle spasm. Treatment Plan: [] Disposition: Discharge Impression: 1. Acute on chronic back pain 2. Lumbar radiculopathy This note was generated with [employer] dictation software. It may contain incorrect words, spelling, and punctuation that were not noted in review of the chart prior to signing ED Disposition - Plan for ED Patient: Disposition: Home or Assisted Living Instructions: ED Spasm Back No Trauma, ED Sciatica Prescriptions: Diazepam [Valium] 5 mg PO Q8 PRN #20 tablet PRN Reason: Muscle Spasm Referrals: Valentín Darby MD [Primary Care Provider] - Additional Instructions: Follow-up with your surgeon in [place]
[2019-02-16] MEDS: diazePAM 2 MG Tablet PO (23:25)
[2019-02-16 23:26] VITALS: BP 123/78; PULSE 71; RESP 16; O2SAT 98
== END 2019-02-16 23:32 | disposition home or self-care (01) ==
PROVIDERS: Emergency Provider Emergency Medicine; Family Provider Family Medicine; PCP Family Medicine
DX: M54.16 Radiculopathy, lumbar region (principal); G89.29 Other chronic pain; M54.5 Low back pain; I10 Essential (primary) hypertension; Z72.0 Tobacco use
CPT/HCPCS: 96374; 96375; 96376; 99284; A4216; J2405

== ENCOUNTER → 2019-02-27 | Outpatient (CLI) | payer BC, SELFPAY ==
[2019-02-16 19:53] VITALS: BMI 23.0
[2019-02-27 15:40] LABS: Anion Gap 8 (5-15); BUN 9 mg/dL (7-18); BUN/Creat Ratio 10.9 RATIO (10-20); Calcium,Total 9.3 mg/dL (8.5-10.1); Chloride 103 mmol/L (98-107); Cholesterol 178 mg/dL (200); Creatinine, Serum 0.82 mg/dL (0.70-1.30); EST Glomerular Filtration Rate 102 mL/min (>60); Est Glom Filt Rate - Afr Amer 123 mL/min (>60); Glucose 90 mg/dL (74-106); High Density Lipoprotein 58 mg/dL; Potassium 4.6 mmol/L (3.5-5.1); Sodium Level 138 mmol/L (136-145); Triglycerides 140 mg/dL; Very Low Density Lipoprotein 28 mg/dL (5-40)
== END | disposition home or self-care (01) ==
LOC: MFPLAB 12:26
PROVIDERS: Family Provider Family Medicine; PCP Family Medicine; Referring Provider Family Medicine; Visit Provider Family Medicine
DX: M48.061 Spinal stenosis, lumbar region without neurogenic claudication (principal); I10 Essential (primary) hypertension
CPT/HCPCS: 36415; 80048; 80061

== ENCOUNTER → 2019-09-01 17:50 | Outpatient (CLI) | payer BC, SELFPAY | PROVIDERS: Family Provider Family Medicine; PCP Family Medicine; Referring Provider Family Medicine; Visit Provider Family Medicine | DX: L03.012 Cellulitis of left finger (principal) | CPT/HCPCS: 87070; 87077; 87186; 87205 ==

== ENCOUNTER → 2019-12-02 10:42 | Outpatient (CLI) | payer BC, SELFPAY ==
[2019-12-02 10:32] VITALS: BMI 24.4
--- NOTE | 2019-12-02 10:43 | RAD_ITS ---
HISTORY: LEFT ARM AND FINGERS NUMBNESS. NO INJURY TECHNIQUE: Cervical spine 5 views Number of images including paperwork: 5 COMPARISON: None FINDINGS: VERTEBRAE: No acute fracture. VERTEBRAL ALIGNMENT: No traumatic subluxation. Approximately 2 mm of degenerative anterolisthesis of C4 on C5. DISKS AND JOINTS: Severe discogenic degenerative changes at C5-6 and C6-7. Facet arthropathy. Mild multilevel bilateral foraminal stenosis, evaluation, limited by obliquity. SOFT TISSUES: Unremarkable paraspinous soft tissues. RAD/Cerv Spine 4 or 5 Views IMPRESSION: No acute osseous abnormality. Cervical spondylosis. at 0544 Reported and signed by: Anuradha Jones MD Electronically Signed: Anuradha Jones MD at 5:44 EST Tel , Service support ,
== END ==
LOC: HPRAD 10:43
PROVIDERS: PCP Family Medicine; Referring Provider Orthopaedic Surgery; Visit Provider Orthopaedic Surgery
DX: R20.0 Anesthesia of skin (principal)
CPT/HCPCS: 72050

== ENCOUNTER → 2019-12-29 | Outpatient (CLI) | payer BC, SELFPAY ==
[2019-12-02 10:32] VITALS: BMI 24.4
[2019-12-29 18:29] LABS: Amphetamine Urine VISTA NEGATIVE (<1000 ng/mL); Barbiturate Urine VISTA NEGATIVE (< 200 ng/mL); Benzodiazepine Urine VISTA NEGATIVE (< 200 ng/mL); Cocaine Urine VISTA NEGATIVE (< 300 ng/mL); Ecstacy Urine VISTA NEGATIVE (< 500 ng/mL); Methadone Urine VISTA NEGATIVE (< 300 ng/mL); PCP Urine VISTA NEGATIVE (< 25 ng/mL); THC Urine VISTA NEGATIVE (< 50 ng/mL); Vista UDS pH Range 7
== END | disposition home or self-care (01) ==
LOC: LAB 16:44
PROVIDERS: PCP Family Medicine; Referring Provider Anesthesiology Pain Medicine; Visit Provider Anesthesiology Pain Medicine
DX: F11.20 Opioid dependence, uncomplicated (principal)
CPT/HCPCS: 80307

== ENCOUNTER → 2020-03-02 14:19 | Outpatient (CLI) | payer BC, SELFPAY ==
[2019-12-02 10:32] VITALS: BMI 24.4
[2020-03-02 15:59] LABS: Anion Gap 6 (5-15); BUN 7 mg/dL (7-18); Calcium,Total 8.7 mg/dL (8.5-10.1); Chloride 103 mmol/L (98-107); Cholesterol 194 mg/dL (200); Creatinine, Serum 0.78 mg/dL (0.70-1.30); EST Glomerular Filtration Rate 108 mL/min (>60); Est Glom Filt Rate - Afr Amer 130 mL/min (>60); Glucose 114 mg/dL (74-106); High Density Lipoprotein 91 mg/dL; Sodium Level 135 mmol/L (136-145); Triglycerides 119 mg/dL; Very Low Density Lipoprotein 24 mg/dL (5-40)
== END ==
PROVIDERS: PCP Family Medicine; Referring Provider Family Medicine; Visit Provider Family Medicine
DX: I10 Essential (primary) hypertension (principal)
CPT/HCPCS: 36415; 80048; 80061

== ENCOUNTER → 2020-06-16 | Outpatient (CLI) | payer BC, SELFPAY ==
[2019-12-02 10:32] VITALS: BMI 24.4
--- NOTE | 2020-06-16 12:40 | RAD_ITS ---
STUDY: X-RAY - PELVIS AND BILATERAL HIPS REASON FOR EXAM: Male, 59 years old. BILATERAL AND LOWER BACK PAIN, HX OF 3 BACK SURGERIES- INCLUDING FUSION AND DISCECTOMY AND DECOMPRESSION -- WORSENING BILATERAL HIP PAIN, RIGHT WORSE THAN LEFT TECHNIQUE: AP view of the pelvis.? 2 views of the right hip, and 2 views of the left hip were obtained. COMPARISON: None. FINDINGS: There is a non-specific bowel gas pattern. Numerous peritoneal tacks are seen related to previous bilateral inguinal hernia repairs. There has been extensive lumbar spine surgery. Normal bilateral iliac wings, sacroiliac joints and visualized sacrum. Normal bilateral superior and inferior pubic rami. Normal pubic symphysis. Normal bilateral ischial tuberosities. Normal visualized right femoral head. Normal right acetabulum. Normal right hip joint. Normal visualized left femoral head. Normal left acetabulum. Normal left hip joint. RAD/Hips B/L min 2 views w/ Pelvis IMPRESSION: Normal x-ray examination of the pelvis and bilateral hips. Electronically Signed: Demarco Mcfarland MD at 17:15 EDT , Service support ,
== END | disposition home or self-care (01) ==
LOC: RAD 12:32
PROVIDERS: PCP Family Medicine; Referring Provider Anesthesiology Pain Medicine; Visit Provider Anesthesiology Pain Medicine
DX: M25.551 Pain in right hip (principal); M25.552 Pain in left hip; M54.9 Dorsalgia, unspecified
CPT/HCPCS: 73521

== ENCOUNTER 2020-07-08 09:57 | Emergency (ER) | payer BC, SELFPAY ==
[2019-12-02 10:32] VITALS: BMI 24.4
[2020-07-08 09:58] VITALS: BP 157/86; PULSE 110; RESP 17; TEMP 36.3; O2SAT 98; BMI 24.4
--- NOTE | 2020-07-08 10:22 | RAD_ITS ---
STUDY: X-RAY - RIGHT SHOULDER REASON FOR EXAM: Male, 59 years old. pt. states no injury, however pain level is high, low range of motion TECHNIQUE: 4 view(s) of the shoulder. COMPARISON: None. FINDINGS: Normal glenohumeral articulation. There is hypertrophic osteoarthrosis of the acromioclavicular joint with inferior osseous spur formation. Normal acromion. Normal humeral head and visualized proximal humerus. The soft tissue structures are unremarkable. Normal visualized pulmonary apex. RAD/Shoulder min 2 Views IMPRESSION: Degenerative arthrosis of the right acromioclavicular joint. Electronically Signed: Willam Richter, at 10:43 EDT , Service support ,
[2020-07-08] MEDS: Ondansetron ODT 4 MG Tablet PO (10:35)
[2020-07-08] MEDS: HYDROmorphone 1 MG/ML Syringe IM (10:35)
--- NOTE | 2020-07-08 10:44 | ED.VISSUMM ---
- ER Visit Summary Date of Service: 07/08/20 Chief Complaint: Right shoulder pain History of Present Illness: The patient is a [address] Valentín Sy and Dr. Botello. He reports that he has right shoulder pain that began 5 days ago. Is a sharp pain is 10 of 10 at worst and 6 out of 10 currently. Is worsened by movement. Is relieved by rest and Percocet. He denies any trauma. No fall, MVA, or change in activity. He denies any paresthesias or weakness. He denies any fever or chills. No chest pain or shortness of breath. 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 Physical Examination: Vitals: Stable. Afebrile. General: Well-nourished and well-developed. Head: Normocephalic atraumatic. Neck: Supple, no lymphadenopathy. No JVD. Nontender. Cardiovascular: Regular rate and rhythm. No murmurs. Respiratory: No respiratory distress. Clear to auscultation bilaterally. Abdominal: Soft, nontender, nondistended, normal bowel sounds. No guarding, rebound, or peritoneal signs. Back: Nontender. Extremities: Mild diffuse tenderness outpatient over his entire deltoid. No pain over his clavicle. There is no erythema or warmth to suggest a septic joint. He has minimal pain with short arc movements. He has pain with abduction that causes decreased range of motion. This is much worse with active abduction and passive. He is neuro vas intact distally. There is normal sensation light touch, less than 2-second cap refill. He has a 2+ radial pulse. Skin: Normal color, no rash. Neurologic: Alert and oriented ?3. Cranial nerves II through XII are intact. Normal strength and sensation. Psych: Normal affect. Test Results: X-ray shows degenerative changes. Emergency Department Course and Treatment: Patient was treated with Dilaudid and Zofran. He is resting more comfortably. Treatment Plan: Patient is already on extended release and immediate release oxycodone. I do not feel that adding more to this is warranted. He will be discharged instructions to follow-up with Dr. Curry Rowan in 1 week for another exam. He is gone to the [facility] previously and I suggested that he see Dr. Covington or Dr. Pineda there for his shoulder. Return to the emergency department for any worsening symptoms. Disposition: To home in improved and stable condition. Impression: 1. Right shoulder pain, acute. This note was generated with [employer] dictation software. It may contain incorrect words, spelling, and punctuation that were not noted in review of the chart prior to signing ED Disposition - Plan for ED Patient: Instructions: ED Shoulder Pain Uncertain Cause Referrals: Curry Rowan MD [STAFF PHYSICIAN] - 3-5 Days Additional Instructions: Follow-up with Dr. Covington or Dr. Pineda at [facility] they are both shoulder specialist. The phone number is [phone].
[2020-07-08 10:58] VITALS: BP 147/89; PULSE 81; RESP 16; O2SAT 99
== END 2020-07-08 11:09 | disposition home or self-care (01) ==
LOC: ED 10:43
PROVIDERS: Emergency Provider Emergency Medicine; PCP Family Medicine
DX: M25.511 Pain in right shoulder (principal); I10 Essential (primary) hypertension; M54.9 Dorsalgia, unspecified; G89.29 Other chronic pain; Z72.0 Tobacco use; Z79.891 Long term (current) use of opiate analgesic; Z79.899 Other long term (current) drug therapy
CPT/HCPCS: 73030; 96372; 99283

== ENCOUNTER → 2020-12-14 12:54 | Outpatient (CLI) | payer BC, SELFPAY ==
[2020-10-17 10:24] VITALS: BMI 25.1
--- NOTE | 2020-12-14 12:59 | EKG12_ITS ---
Test Reason : PREOP Blood Pressure : / mmHG Vent. Rate : 074 BPM Atrial Rate : 074 BPM P-R Int : 152 ms QRS Dur : 100 ms QT Int : 382 ms P-R-T Axes : 074 052 041 degrees QTc Int : 424 ms Normal sinus rhythm Normal ECG Confirmed by SHERWIN FOWLER, JUSTIN ([id number]), technical writer and editor MUNA COLVIN ([id number]) on 12/15/2020 1:01:46 PM Referred By: Curry Rowan Confirmed By:JUSTIN COURTNEY MD
--- NOTE | 2020-12-14 13:11 | RAD_ITS ---
STUDY: X-RAY CHEST REASON FOR EXAM: Male, 60 years old. PRE OP TECHNIQUE: PA and lateral views of the chest. COMPARISON: Hyperinflation. The lungs are clear. FINDINGS: The lungs are clear and expanded. There is no demonstrated pleural abnormality. Normal size heart. Normal mediastinum and john paul. Normal visualized pulmonary arteries. Normal visualized aortic arch and descending thoracic aorta. Normal visualized thoracic spine. Normal visualized ribs, clavicles, and shoulders. There is no demonstrated abnormality of the visualized soft tissue structures of the upper abdomen. RAD/Chest PA and Lateral IMPRESSION: Hyperinflation. The lungs are clear. Electronically Signed: Willam Richter MD at 15:38 EST , Service support ,
[2020-12-14 15:01] LABS: Anion Gap 6 (5-15); BUN 7 mg/dL (7-18); BUN/Creat Ratio 8.1 RATIO (10-20); Calcium,Total 9.1 mg/dL (8.5-10.1); Chloride 103 mmol/L (98-107); Creatinine, Serum 0.86 mg/dL (0.70-1.30); EST Glomerular Filtration Rate 96 mL/min (>60); Est Glom Filt Rate - Afr Amer 116 mL/min (>60); Glucose 105 mg/dL (74-106); Potassium 3.9 mmol/L (3.5-5.1); Sodium Level 138 mmol/L (136-145)
== END ==
LOC: LABSPEC 13:07 → RAD 13:18
PROVIDERS: PCP Family Medicine; Referring Provider Orthopaedic Surgery; Visit Provider Physician Assistant
DX: Z01.810 Encounter for preprocedural cardiovascular examination (principal); I10 Essential (primary) hypertension; F17.200 Nicotine dependence, unspecified, uncomplicated; Z11.52 Encounter for screening for COVID-19
CPT/HCPCS: 36415; 71046; 80048; 87635; 93005; C9803; U0002; U0003

== ENCOUNTER → 2021-04-06 13:48 | Outpatient (CLI) | payer BC, SELFPAY ==
[2020-10-17 10:24] VITALS: BMI 25.1
[2021-04-06 16:03] LABS: Anion Gap 5 (5-15); BUN 7 mg/dL (7-18); BUN/Creat Ratio 9.1 RATIO (10-20); Calcium,Total 8.9 mg/dL (8.5-10.1); Chloride 105 mmol/L (98-107); Cholesterol 168 mg/dL (200); Creatinine, Serum 0.77 mg/dL (0.70-1.30); EST Glomerular Filtration Rate 109 mL/min (>60); Est Glom Filt Rate - Afr Amer 132 mL/min (>60); Glucose 103 mg/dL (74-106); High Density Lipoprotein 75 mg/dL; Sodium Level 137 mmol/L (136-145); Triglycerides 46 mg/dL; Very Low Density Lipoprotein 9 mg/dL (5-40)
== END ==
PROVIDERS: PCP Family Medicine; Referring Provider Family Medicine; Visit Provider Family Medicine
DX: I10 Essential (primary) hypertension (principal)
CPT/HCPCS: 36415; 80048; 80061

== ENCOUNTER → 2021-05-02 11:21 | Outpatient (CLI) | payer BC, SELFPAY ==
[2020-10-17 10:24] VITALS: BMI 25.1
[2021-05-02 15:49] LABS: Anion Gap 7 (5-15); BUN 9 mg/dL (7-18); BUN/Creat Ratio 11.7 RATIO (10-20); Chloride 103 mmol/L (98-107); Creatinine, Serum 0.77 mg/dL (0.70-1.30); EST Glomerular Filtration Rate 110 mL/min (>60); Est Glom Filt Rate - Afr Amer 133 mL/min (>60); Glucose 124 mg/dL (74-106); Potassium 4.1 mmol/L (3.5-5.1); Sodium Level 132 mmol/L (136-145)
== END ==
PROVIDERS: PCP Family Medicine; Visit Provider Orthopaedic Surgery
DX: M54.5 Low back pain (principal)
CPT/HCPCS: 36415; 80048

== ENCOUNTER → 2021-08-10 15:52 | Outpatient (CLI) | payer BC, SELFPAY ==
[2021-08-10 17:56] LABS: Absolute Lymphocyte Count 2.12 X10^3/uL (0.83-4.51); Absolute Neutrophil Count 5.4 X10^3/uL (2.0-7.7); Basophil# 0.07 X10^3/uL; Basophil% 0.8 % (0-1); Eosinophil# 0.04 X10^3/uL; Eosinophils% 0.5 % (0-5); Hematocrit 52.1 % (40-54); Hemoglobin 17.8 g/dL (13.0-16.5); Lymphocyte # 2.12 X10^3/ul (0.83-4.51); Lymphocyte % 25.4 % (19-41); Mean Corp Hgb Conc 34.2 g/dL (32-36); Mean Corpuscular Hgb 31.6 pg (27.0-32.0); Mean Corpuscular Volume 92.5 fL (80-94); Mean Platelet Vol. 9.3 fl (6.2-12.0); Monocyte# 0.72 X10^3/uL; Monocyte% 8.6 % (0-10); NRBC Flagged by Analyzer 0 % (0-5); Neutrophil # 5.36 X10^3/uL (2.7-7.7); Neutrophil % 64.2 % (47-70); Platelet Count 313 K/mm3 (150-450); RBC Distribution Width CV 11.9 % (11.6-14.6); RBC Distribution Width SD 41.1 fl (35.1-43.9); Red Blood Count 5.63 M/mm3 (4.6-6.2); White Blood Count 8.4 K/mm3 (4.4-11.0)
[2021-08-10 18:17] LABS: AST(SGOT) 51 U/L (15-37); Alanine Aminotransfer ALT/SGPT 114 U/L (16-61); Alkaline Phosphatase 97 U/L (45-117); Anion Gap 8 (5-15); BUN 7 mg/dL (7-18); BUN/Creat Ratio 8.6 RATIO (10-20); Calcium,Total 9.4 mg/dL (8.5-10.1); Chloride 100 mmol/L (98-107); Creatinine, Serum 0.81 mg/dL (0.70-1.30); EST Glomerular Filtration Rate 102 mL/min (>60); Est Glom Filt Rate - Afr Amer 124 mL/min (>60); Glucose 103 mg/dL (74-106); Sodium Level 134 mmol/L (136-145)
[2021-08-10 18:18] LABS: International Normalized Ratio 0.9; Prothrombin Time (Protime)PT. 11.9 SECONDS (11.7-14.9)
== END ==
PROVIDERS: PCP Family Medicine; Referring Provider Family Medicine; Visit Provider Family Medicine
DX: Z01.818 Encounter for other preprocedural examination (principal)
CPT/HCPCS: 36415; 80053; 85025; 85610

== ENCOUNTER → 2022-04-11 | Outpatient (CLI) | payer MEDICARE, SELFPAY ==
[2022-04-11 13:01] LABS: Anion Gap 6 (5-15); BUN 6 mg/dL (7-18); BUN/Creat Ratio 7.3 RATIO (10-20); Calcium,Total 8.8 mg/dL (8.5-10.1); Chloride 104 mmol/L (98-107); Cholesterol 151 mg/dL (200); Creatinine, Serum 0.82 mg/dL (0.70-1.30); EST Glomerular Filtration Rate 101 mL/min (>60); Est Glom Filt Rate - Afr Amer 122 mL/min (>60); Glucose 111 mg/dL (74-106); High Density Lipoprotein 63 mg/dL; Potassium 4.2 mmol/L (3.5-5.1); Sodium Level 134 mmol/L (136-145); Triglycerides 68 mg/dL; Very Low Density Lipoprotein 14 mg/dL (5-40)
== END | disposition home or self-care (01) ==
LOC: MFPLAB 11:16
PROVIDERS: PCP Family Medicine; Visit Provider Family Medicine
DX: I10 Essential (primary) hypertension (principal)
CPT/HCPCS: 36415; 80048; 80061

== ENCOUNTER 2022-11-23 09:16 | Day surgery (SDC) | payer MEDICARE, SELFPAY ==
[2022-11-23] MEDS: Lactated Ringers 1,000 ML 15 ML IV (09:40)
[2022-11-23 09:50] VITALS: BP 135/75; PULSE 78; RESP 18; TEMP 36.5; O2SAT 99; BMI 25.0
[2022-11-23] MEDS: Cefazolin 2 GM in 0.9% Normal Saline 100 ML IV (10:55)
--- NOTE | 2022-11-23 11:08 | RAD_ITS ---
STUDY: X-RAY - LUMBAR SPINE REASON FOR EXAM: Male, 62 years old. INSERTION, PAIN PUMP, IMPLANTABLE TECHNIQUE: 2 intraoperative view(s) of the lumbar spine were obtained. COMPARISON: None FINDINGS: Intraoperative imaging provided for pain pump placement. RAD/Spine 1 View Any Level IMPRESSION: Intraoperative images are provided for pain pump placement. Electronically Signed: Willam Richter MD at 14:02 EST ,
[2022-11-23 12:30] VITALS: BP 113/92; BP 135/75; PULSE 82; RESP 18; TEMP 36.6; O2SAT 95
[2022-11-23 12:45] VITALS: BP 100/69; BP 135/75; PULSE 76; RESP 16; O2SAT 97
[2022-11-23 13:00] VITALS: BP 135/75; BP 90/60; PULSE 74; RESP 16; O2SAT 94
[2022-11-23 13:15] VITALS: BP 108/61; BP 135/75; PULSE 72; RESP 16; TEMP 36.6; O2SAT 93
[2022-11-23] MEDS: Acetaminophen 325 MG Tablet 650 MG PO (14:06)
[2022-11-23] MEDS: oxyCODONE 5 MG Tablet 10 MG PO (14:07)
[2022-11-23 14:31] VITALS: BP 135/75; BP 147/81; PULSE 69; RESP 16; TEMP 36.6; O2SAT 94
== END 2022-11-23 14:45 | disposition home or self-care (01) ==
LOC: SDC 09:21 → AC 09:24
PROVIDERS: PCP Family Medicine; Referring Provider Anesthesiology Pain Medicine; Visit Provider Anesthesiology Pain Medicine
PROC: (CPT 62362; principal; 2022-11-23 10:30)
DX: G89.4 Chronic pain syndrome (principal); M96.1 Postlaminectomy syndrome, not elsewhere classified; I10 Essential (primary) hypertension; Z87.891 Personal history of nicotine dependence
CPT/HCPCS: 62362; 62350; 00630; 72020; 76000; C1713; J7120; J2274; J2405; J3490

== ENCOUNTER → 2023-04-04 | Outpatient (CLI) | payer MEDICARE, SELFPAY ==
[2023-04-04 16:12] LABS: Anion Gap 6 (5-15); BUN 5 mg/dL (7-18); BUN/Creat Ratio 7.3 RATIO (10-20); Calcium,Total 8.9 mg/dL (8.5-10.1); Chloride 100 mmol/L (98-107); Cholesterol 163 mg/dL (200); Creatinine, Serum 0.68 mg/dL (0.70-1.30); EST Glomerular Filtration Rate 125 mL/min (>60); Est Glom Filt Rate - Afr Amer 151 mL/min (>60); Glucose 102 mg/dL (74-106); High Density Lipoprotein 81 mg/dL; Potassium 3.9 mmol/L (3.5-5.1); Sodium Level 133 mmol/L (136-145); Triglycerides 54 mg/dL; Very Low Density Lipoprotein 11 mg/dL (5-40)
== END | disposition home or self-care (01) ==
LOC: MFPLAB 11:11
PROVIDERS: PCP Family Medicine; Visit Provider Family Medicine
DX: I10 Essential (primary) hypertension (principal)
CPT/HCPCS: 36415; 80048; 80061

== ENCOUNTER → 2023-09-30 | Outpatient (CLI) | payer MEDICARE, SELFPAY ==
[2023-09-30 16:44] LABS: Anion Gap 5 (5-15); BUN 8 mg/dL (7-18); BUN/Creat Ratio 9.7 RATIO (10-20); Calcium,Total 9.1 mg/dL (8.5-10.1); Chloride 107 mmol/L (98-107); Cholesterol 163 mg/dL (200); Creatinine, Serum 0.82 mg/dL (0.70-1.30); EST Glomerular Filtration Rate 100 mL/min (>60); Est Glom Filt Rate - Afr Amer 121 mL/min (>60); Glucose 115 mg/dL (74-106); High Density Lipoprotein 79 mg/dL; Potassium 4.5 mmol/L (3.5-5.1); Sodium Level 138 mmol/L (136-145); Thyroid Stim Hormone (TSH) 1.68 uIU/mL (0.358-3.74); Triglycerides 48 mg/dL; Very Low Density Lipoprotein 10 mg/dL (5-40)
== END | disposition home or self-care (01) ==
LOC: MFPLAB 11:25
PROVIDERS: PCP Family Medicine; Visit Provider Family Medicine
DX: I10 Essential (primary) hypertension (principal); F32.A Depression, unspecified
CPT/HCPCS: 36415; 80048; 80061; 84443

== ENCOUNTER → 2024-10-01 | Outpatient (CLI) | payer MEDICARE, SELFPAY ==
[2024-10-01 16:03] LABS: Anion Gap 6 (5-15); BUN 9 mg/dL (7-18); BUN/Creat Ratio 11.6 RATIO (10-20); Calcium,Total 9.2 mg/dL (8.5-10.1); Chloride 96 mmol/L (98-107); Cholesterol 155 mg/dL (200); Creatinine, Serum 0.78 mg/dL (0.70-1.30); EST Glomerular Filtration Rate 107 mL/min (>60); Est Glom Filt Rate - Afr Amer 129 mL/min (>60); Glucose 115 mg/dL (74-106); High Density Lipoprotein 73 mg/dL; Potassium 3.8 mmol/L (3.5-5.1); Sodium Level 128 mmol/L (136-145); Triglycerides 57 mg/dL; Very Low Density Lipoprotein 11 mg/dL (5-40)
== END | disposition home or self-care (01) ==
PROVIDERS: PCP Family Medicine; Referring Provider Family Medicine; Visit Provider Family Medicine
DX: I10 Essential (primary) hypertension (principal)
CPT/HCPCS: 36415; 80048; 80061

== ENCOUNTER 2024-12-11 10:17 | Emergency (ER) | payer MEDICARE, SELFPAY ==
[2024-12-11 10:18] VITALS: BP 123/73; PULSE 109; RESP 18; TEMP 36.3; O2SAT 99
[2024-12-11 10:39] VITALS: BMI 22.4
--- NOTE | 2024-12-11 10:49 | CT_ITS ---
EXAM: BRAIN/HEAD WITHOUT CONTRAST CLINICAL HISTORY: Severe neck pain. COMPARISON: None. TECHNIQUE: Multiple axial tomographic images were obtained without intravenous contrast administration. Coronal and sagittal reconstruction was obtained as well. FINDINGS: Mild degree of cerebral atrophy. Atherosclerotic calcification of the cavernous portions of the internal carotid arteries bilaterally. No significant abnormality is seen. CT/Brain/Head without Contrast IMPRESSION: Mild degree of cerebral atrophy. No acute abnormality is seen. Reading Location: [id number]
--- NOTE | 2024-12-11 11:05 | EX.ED.DYSGE1 ---
HPI History of Present Illness Chief Complaint: Other, Pain/Inj Narrative Narrative: Patient is a 64-year-old male with a past medical history of alcohol abuse, hypertension, arthritis who presents to the emergency department with a chief complaint of knee pain. Patient states that he stopped drinking about 20 days ago and has not had any alcohol he went to his physician and they gave him some medicine to help him to stop drinking. Patient states that ever since stopped drinking he has had extremely bad dreams he states that he is a and has been having very bad dreams. He has been waking up in the middle of the night screaming take cover diving under beds and was found sleeping in the bathtub by his . He states that he has neck pain here today which ultimately brought him here. He denies any known trauma but states that I been diving on her bed so maybe I hurt my neck. [facility] Medical History Alcoholism Wears dentures Arthritis Smoker History of pain when walking Chronic back pain HTN (hypertension) Tobacco dependence in remission Home Medications ?Medication ?Instructions ?Recorded ?Last Taken ?Type losartan 100 1 tab PO DAILY 12/01/18 Unknown History mg-hydrochlorothiazide 25 mg tablet (Hyzaar) duloxetine 60 mg capsule,delayed 60 mg PO DAILY 09/21/22 Unknown History release (Cymbalta) oxycodone-acetaminophen 5 mg-325 1 tab PO TID 09/21/22 Unknown History mg tablet (Percocet) clonazepam 1 mg tablet 1 mg PO BID 12/11/24 Unknown History cyclobenzaprine 5 mg tablet 5 mg PO TID PRN muscle spasm #15 12/11/24 Unknown Rx tabs folic acid 1 mg tablet 1 mg PO DAILY 12/11/24 Unknown History lorazepam 1 mg tablet (Ativan) 1 mg PO BID PRN anxiety 4 days #12 12/11/24 Unknown Rx tabs omeprazole 20 mg capsule,delayed 20 mg PO QHS 12/11/24 Unknown History release quetiapine 50 mg tablet 50 mg PO QHS 12/11/24 Unknown History thiamine HCl (vitamin B1) 100 mg 100 mg PO DAILY 12/11/24 Unknown History tablet Allergy/AdvReac Type Severity Reaction Status Date / Time No Known Allergies Allergy Verified 12/11/24 10:18 Family History Mother Hypertension Surgical History Hx of total shoulder replacement Hx of knee surgery History of cholecystectomy Hx of bilateral inguinal hernia repair s/p back fusion History of lumbar laminectomy for spinal cord decompression Social History household members: spouse and children housing: house current occupational status: employed Smoking Status: Light Smoker (<10/day) alcohol intake: current alcohol intake frequency: a few times a month what type of physical activity do you participate in: none do you feel safe at home: Yes ROS ROS ED ROS Narrative Constitutional: Denies any headaches, lightness, dizziness, fevers, chills Neck: Complains of neck pain as noted above Eyes: Denies change in vision double vision blurry vision Cardiovascular: Denies chest pain or palpitations Respiratory: Denies coughing wheezing shortness of breath Abdomen: Denies abdominal pain nausea vomiting : Denies urinary symptoms Psychiatric: Denies homicidal suicidal ideations states that he is having very bad dreams from his days waking up in the [place] Neurological: Denies numbness, weakness, tingling Musculoskeletal: States that his chronic back pain Skin: Denies rashes or lesions EXAM Physical Exam Narrative Exam Narrative: General: Patient lying in bed rest comfortably did not appear to be in acute distress Head: Atraumatic, normocephalic Eyes: PERRL bilaterally, EOMI bilateral, no conjunctival injection noted Neck: Soft, supple, trachea midline Cardiovascular: Patient tachycardic with a regular rhythm no murmurs gallops rubs are noted Respiratory: Clear to auscultation bilaterally Abdomen: Soft, nondistended, nontender to palpation Musculoskeletal: No tenderness to palpation midline of the cervical thoracic lumbar spine Extremities: +5/5 strength noted in the bilateral upper and lower extremities, radial pulses +2/4 in the bilateral extremities Neurological: Patient following commands knew that he was at [facility] year is 2024 Skin: Warm, dry, intact Psychiatric: Patient is tearful during exam Const Vital Signs: 12/11/24 10:18 12/11/24 10:38 12/11/24 12:17 Temperature 97.3 F L Temperature Source Temporal Pulse Rate 109 H 98 Respiratory Rate 18 16 Respiratory Effort Normal Respiratory Pattern Normal Blood Pressure 123/73 H 120/79 Blood Pressure Mean 89 92 Pulse Ox 99 97 Oxygen Delivery Method Room Air Room Air 12/11/24 14:00 12/11/24 16:00 Temperature Temperature Source Pulse Rate 64 89 Respiratory Rate 18 14 Respiratory Effort Respiratory Pattern Blood Pressure 132/64 H 113/77 Blood Pressure Mean 86 89 Pulse Ox 98 99 Oxygen Delivery Method Room Air Room Air MDM MDM MDM Narrative Medical decision making narrative: Patient is a 64-year-old male who presented to the emerged part with chief complaint of neck pain. On the differential diagnose includes but limited to cervical spine fracture, musculoskeletal strain, electrolyte abnormality. Once workup is obtained reviewed he will be reevaluated. If patient's workup is largely unremarkable social work will be consulted for potential inpatient stabilization. Patient CBC reviewed showed no evidence leukocytosis white blood count normal at 12.5, hemoglobin 15.4, plate count normal at 400. Patient sodium normal 137, potassium normal 3.4, creatinine was 1.18. Patient AST and ALT were 2329 respectively. Patient's lipase normal at 16, urinalysis showed no evidence of infection. Patient's drug screen was positive for benzos and opiates. As well as cannabis. Patient CT head and brain without contrast showed mild degree of cerebral atrophy no acute abnormality noted. Patient CT cervical spine showed degenerative changes of the cervical spine. Multilevel neural foraminal stenosis. No fractures noted. Social work evaluated the patient here in the emergency department and also discussed with his and they felt that they would take resources and they do not want him placed into a facility. Patient was given Ativan here in the emergency department to help him relax as he was very anxious and tearful during his discussion about his past. He was advised to rotate ibuprofen and Tylenol [id number] for mild to moderate pain. He will be given muscle relaxers as well and a few pills of Ativan to help him relax at night to help him sleep with his flashback emotions. Patient was advised to follow-up with his primary care physician and return with worsening symptoms or concerns. He is agreeable to plan all question concerns answered he is discharged home in stable condition. Lab Data Labs: Laboratory Results - last 24 hr 12/11/24 12/11/24 11:09 13:45 WBC 12.5 H RBC 4.81 Hgb 15.4 Hct 44.2 MCV 91.9 MCH 32.0 MCHC 34.8 RDW Std Deviation 40.1 RDW Coeff of Rasheeda 11.9 Plt Count 400 MPV 9.5 Immature Gran % (Auto) 0.400 Neut % (Auto) 76.9 H Lymph % (Auto) 15.1 L [place] % (Auto) 6.7 Eos % (Auto) 0.3 Baso % (Auto) 0.6 Absolute Neuts (auto) 9.6 H Absolute Lymphs (auto) 1.88 Nucleated RBC % 0 Sodium 137 Potassium 3.4 Chloride Direct 99 Carbon Dioxide 19.9 L Anion Gap 18 H BUN 15 Creatinine 1.18 Estim Creat Clear Calc 62.41 Est GFR (MDRD) Non-Af 68 BUN/Creatinine Ratio 12.7 Glucose 123 H Calcium 9.6 Total Bilirubin 0.87 AST 23 ALT 29 Alkaline Phosphatase 134 H Total Protein 7.7 Albumin 4.3 Globulin 3.4 Albumin/Globulin Ratio 1.3 Lipase 16 Urine Color Yellow Urine Clarity Clear Urine pH 6.5 Ur Specific [place] 1.010 Urine Protein 15 H Urine Glucose (UA) Normal Urine Ketones Negative Urine Occult Blood Negative Urine Nitrite Negative Urine Bilirubin Negative Urine Urobilinogen Normal Ur Leukocyte Esterase Negative Urine RBC 0 SEEN Urine WBC 0-5 SEEN Ur Squamous Epith Cells 0 SEEN Urine Bacteria 0 SEEN Urine Mucus 0 SEEN Urine Opiates Screen PRESUMPTIVE POSITIVE U Buprenorphine Qual NEGATIVE Ur Oxycodone Screen NEGATIVE Urine Methadone Screen NEGATIVE Urine Fentanyl Screen NEGATIVE Ur Barbiturates Screen NEGATIVE Ur Phencyclidine Scrn NEGATIVE Ur Amphetamines Screen NEGATIVE U Benzodiazepines Scrn PRESUMPTIVE POSITIVE Urine Cocaine Screen NEGATIVE U Cannabinoids Screen PREUMTIVE POSITIVE Ethyl Alcohol < 10.1 Radiography Diagnostic Testing: Clinical Impression(s) from Imaging Studies Brain CT 12/11/24 10:49 IMPRESSION: Mild degree of cerebral atrophy. No acute abnormality is seen. Reading Location: [id number] Cervical Spine CT 12/11/24 11:20 IMPRESSION: DEGENERATIVE CHANGES OF THE CERVICAL SPINE. Multilevel neural foraminal stenosis as described. No fracture is seen. One or more dose reduction techniques were used (e.g., Automated exposure control, adjustment of the mA and/or kV according to patient size, use of iterative reconstruction technique). Reading Location: [id number] Discharge Plan Triage Chief Complaint: Other, Pain/Inj ED Provider: Chris Parker Dx/Rx/DC Orders Clinical Impression: Post traumatic stress disorder, Anxiety, Neck pain Prescriptions: New lorazepam [Ativan] 1 mg tablet 1 mg PO BID PRN (Reason: anxiety) 4 Days Qty: 12 0RF cyclobenzaprine 5 mg tablet 5 mg PO TID PRN (Reason: muscle spasm) Qty: 15 0RF No Action losartan-hydrochlorothiazide [Hyzaar] 100-25 mg tablet 1 tab PO DAILY oxycodone-acetaminophen [Percocet] 5-325 mg tablet 1 tab PO TID Patient Comments: TAKE 1 TABLET THREE TIMES DAILY duloxetine [Cymbalta] 60 mg capsule,delayed release(DR/EC) 60 mg PO DAILY Patient Comments: Take 1 (one) Capsule by mouth daily clonazepam 1 mg tablet 1 mg PO BID thiamine HCl (vitamin B1) 100 mg tablet 100 mg PO DAILY omeprazole 20 mg capsule,delayed release(DR/EC) 20 mg PO QHS folic acid 1 mg tablet 1 mg PO DAILY quetiapine 50 mg tablet 50 mg PO QHS Primary Care Provider: Valentín Darby Referrals: Valentín Darby MD [Primary Care Provider] - Activity Restrictions/Additional Instructions: Take the prescriptions that were sent to the pharmacy as prescribed. Take melatonin at night to help with sleep. Follow your primary care physician outpatient setting. Rotate Tylenol and ibuprofen [id number] when you do this you can take something every 3 hours for your pain. Max dose Tylenol is 4000 mg max dose of ibuprofen is 3200 mg. Return with worsening symptoms or any concerns use the resources that the social work team provided to you here in the emergency department today. Print Language: Romansh Disposition Disposition: Home, Self Care
--- NOTE | 2024-12-11 11:20 | CT_ITS ---
PROCEDURE: SPINE CERVICAL WITHOUT CONTRAS REASON FOR EXAM: Neck injury. TECHNIQUE: Cervical spine CT without contrast. COMPARISON: None. FINDINGS: Alignment: Normal Vertebrae: No acute fracture Soft Tissues: Unremarkable C1-2: Facet joint osteoarthritis and hypertrophy more prominent on the right side. C2-3: Mild degree of disc space narrowing. Spondylosis. Bilateral neural foraminal stenosis due to hypertrophy of the facet joints as well as uncovertebral arthrosis. C3-4: Mild degree of disc space narrowing. Spondylosis. Uncovertebral arthrosis. Bilateral neural foraminal stenosis of a moderate degree. C4-5: Moderate degree of bilateral neural foraminal stenosis due to uncovertebral arthrosis. C5-6: Marked degree of disc space narrowing and spondylosis. Uncovertebral arthrosis. Bilateral neural foraminal stenosis worse on the left side. C6-7: Moderate degree of disc space narrowing and spondylosis. Uncovertebral arthrosis. Facet joint osteoarthritis. No significant stenosis seen. C7-T1: Unremarkable CT/Spine Cervical without Contras IMPRESSION: DEGENERATIVE CHANGES OF THE CERVICAL SPINE. Multilevel neural foraminal stenos is as described. No fracture is seen. One or more dose reduction techniques were used (e.g., Automated exposure contr ol, adjustment of the mA and/or kV according to patient size, use of iterative reconstruction technique). Reading Location: [id number]
[2024-12-11 11:23] LABS: Absolute Lymphocyte Count 1.88 X10^3/uL (0.83-4.51); Absolute Neutrophil Count 9.6 X10^3/uL (2.0-7.7); Basophil# 0.08 X10^3/uL; Basophil% 0.6 % (0-1); Eosinophil# 0.04 X10^3/uL; Eosinophils% 0.3 % (0-5); Hematocrit 44.2 % (40-54); Hemoglobin 15.4 g/dL (13.0-16.5); Lymphocyte # 1.88 X10^3/ul (0.83-4.51); Lymphocyte % 15.1 % (19-41); Mean Corp Hgb Conc 34.8 g/dL (32-36); Mean Corpuscular Volume 91.9 fL (80-94); Mean Platelet Vol. 9.5 fl (6.2-12.0); Monocyte# 0.84 X10^3/uL; Monocyte% 6.7 % (0-10); NRBC Flagged by Analyzer 0 % (0-5); Neutrophil # 9.58 X10^3/uL (2.7-7.7); Neutrophil % 76.9 % (47-70); Platelet Count 400 K/mm3 (150-450); RBC Distribution Width CV 11.9 % (11.6-14.6); RBC Distribution Width SD 40.1 fl (35.1-43.9); Red Blood Count 4.81 M/mm3 (4.6-6.2); White Blood Count 12.5 K/mm3 (4.4-11.0)
[2024-12-11 11:46] LABS: ALB/GLOB Ratio 1.3 RATIO (0.9-2.4); AST(SGOT) 23 U/L (<=37); Alanine Aminotransfer ALT/SGPT 29 U/L (<=46); Albumin, Serum 4.3 g/dL (3.4-4.8); Alcohol, Blood (Medical)-Serum < 10.1 mg/dL (<=10.0); Alkaline Phosphatase 134 U/L (40-129); Anion Gap 18 (5-15); BUN 15 mg/dL (4-19); BUN/Creat Ratio 12.7 RATIO (10-20); Calcium 9.6 mg/dL (7.6-11.0); Carbon Dioxide 19.9 mmol/L (22.0-29.0); Chloride 99 mmol/L (96-108); Creatinine, Serum 1.18 mg/dL (0.70-1.20); EST Glomerular Filtration Rate 68 (>60); Estimated Creatinine Clearance 62.41 ml/min; Globulin 3.4 g/dL (2.2-4.2); Glucose 123 mg/dL (70-99); Lipase 16 U/L (13-75); Potassium 3.4 mmol/L (3.3-5.1); Protein, Total 7.7 g/dL (5.9-8.4); Sodium Level 137 mmol/L (133-145); Total Bilirubin 0.87 mg/dL (0.00-1.30)
[2024-12-11] MEDS: 0.9% Normal Saline (1000mL) 1,000 ML 999 ML IV (11:51)
[2024-12-11] MEDS: Morphine 4 MG/ML Syringe IV (11:52)
[2024-12-11] MEDS: Ondansetron 4 MG/2 ML Vial IV (11:52)
[2024-12-11 12:17] VITALS: BP 120/79; PULSE 98; RESP 16; O2SAT 97
[2024-12-11 13:50] LABS: Bacteria 0 SEEN /hpf (None Seen); Mucous, Urine 0 SEEN /hpf (<or=2+); Squamous Epithelial Cells - UA 0 SEEN /hpf (0-5)
[2024-12-11 13:54] LABS: Color, Urine Yellow (Yellow); Glucose, Dipstick Normal (Normal); Ketone-Dipstick Negative (Negative); Leukocyte Esterase-Dipstick Negative /ul (Negative); Nitrite-Dipstick Negative (Negative); Occult Blood-Urine Negative /ul (Negative); Protein-Dipstick 15 mg/dl (Negative); Urine Bilirubin Dipstick Negative (Negative); Urine Clarity Clear (Clear); Urine Urobilinogen Normal (Normal); Urine pH 6.5 (5.0 - 8.0)
[2024-12-11 14:00] VITALS: BP 132/64; PULSE 64; RESP 18; O2SAT 98
[2024-12-11 14:01] LABS: White Blood Cells 0-5 SEEN /hpf (0-5)
[2024-12-11 14:02] LABS: Red Blood Cells-Urine 0 SEEN /hpf (0-5)
[2024-12-11 14:38] LABS: Amphetamine Urine NEGATIVE (<1000 ng/mL); Barbiturate Urine NEGATIVE (< 200 ng/mL); Benzodiazepine Urine PRESUMPTIVE POSITIVE (< 200 ng/mL); Buprenorphine Urine NEGATIVE (< 200 ng/mL); Cocaine Urine NEGATIVE (< 300 ng/mL); Fentanyl, Urine NEGATIVE; Methadone Urine NEGATIVE (< 300 ng/mL); Opiates Urine PRESUMPTIVE POSITIVE (< 300 ng/mL); Oxycodone, Urine NEGATIVE (< 100 ng/mL); PCP Urine NEGATIVE (< 25 ng/mL); THC Urine PREUMTIVE POSITIVE (< 50 ng/mL)
[2024-12-11] MEDS: Lorazepam 2 MG/ML WCH Syringe 0.5 MG IV (15:15)
[2024-12-11] MEDS: Ketorolac 30 MG/ML Syringe IV (15:15)
[2024-12-11 16:00] VITALS: BP 113/77; PULSE 89; RESP 14; O2SAT 99
[2024-12-11] MEDS: LORazepam 1 MG Tablet PO (16:53)
[2024-12-11 16:56] VITALS: BP 131/78; PULSE 64; RESP 18; TEMP 36.6; O2SAT 99
--- NOTE | 2024-12-11 17:14 | CM.ED ---
Social Work Psychiatric Assessment Reason for consult: mental health Informant(s): ?patient, medical records, patient's (Ashley) Chief Complaint:? Patient presented to [facility] ED today with neck pain. After talking with Dr. Parker, patient required SW consult due to patient statement that PTSD nightmares have increased since patient stopped drinking on 11/22/24. Patient is reportedly waking up in the night, screaming, diving under beds, found sleeping in the tub, etc. Patient's states feeling comfortable with patient being discharged home with resources due to belief that patient is struggling with coming down from the alcohol. Patient reported seeing things nobody should see in the and patient states previously drinking to keep the thoughts away. Patient states unwillingness to speak with anyone who is not a jarhead or a Student Support Advisor because of the belief that the individual will not understand unless going through similar things. Patient endorses limited appetite and energy after stopping drinking and endorses lack of sleep due to being in pain. Patient reported having multiple flashbacks of patient's time in the . Patient denied needing help of any kind, though patient was willing to accept resources for counseling and patient reported Dr. Valentín Darby is seeing patient every couple of days for close monitoring with patient's lack of alcohol. Marital/Social History/Sexual Orientation/Gender Identity: patient is a 64 year old male. Patient has been for 37 years to patient's , Ashley. Living Situation: patient lives with patient's , Ashley, and their 33 year old son. Support/Resources: patient reports patient's and children to be biggest supports. Patient has a 41 year old daughter, a 36 year old son, and a 33 year old son. Patient states having 3 grandchildren as well. 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 Mental Health Treatment/History: patient reports having no mental health diagnoses that patient is aware of and patient reports taking no medication. Patient reports attending Alcoholics Anonymous groups in the past and denies any inpatient or outpatient mental health treatment. Triggers/Stressors to mental health: patient reports being in the as a stressor and reports that patient drank away stressors in the past. Coping Skills: patient states spending time with patient's and going on a recent cruise to be coping skills. Patient states unhealthy coping via drinking heavily in the recent past. History of Abuse (physical/sexual/verbal/emotional): patient denies any past abuse. 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 Patient reports previously drinking 4 cases of Pettibone Light in a week and patient reports having no urge to drink. Risk to Self/Others: ? Suicidal (thought/plan/intent/attempt): see -SSRS for details. ? Access to Lethal Means: patient has access to guns, knives, and medication. ? Homicidal (thought/plan/intent/attempt): patient denies any current or historical homicidal thoughts, plans, intent, or attempts. ? History of Violence (self/others/objects): patient denies any history or current violence toward self and objects. Patient states violence toward others in the past due to patient's time in the . Mental Status Exam: ??? Orientation: patient oriented to time, place, and person. ??? Memory: good Appearance/General Behavior: disheveled, agitated due to pain Mood/Affect: appropriate, tearful Communication Pattern:? responds to questions Thought Process:? appropriate General Intellectual Functioning: ??average Judgment: good Insight: good [facility] SUICIDAL IDEATION Ask questions 1 and 2.? If both are negative, proceed to ?Suicidal Behavior? section. If the answer question 2 is yes, ask questions 3, 4, 5.? If the answer to question 1 and/or 2 is ?yes?, complete ?Intensity of Ideation? section below. 1. Wish to be ? Subject endorses thoughts about a wish to be or not alive anymore, or wish to fall asleep and not wake up. Have you wished you were or wished you could go to sleep and not wake up? Lifetime: Time He/She [place] Most Suicidal: ?yes Past 1 month: yes Please Describe if yes: ?patient states having these thoughts when feeling like a burden to others. 2. Non-Specific Active Suicidal Thoughts General, non-specific thoughts of wanting to end one?s life/commit suicide (e.g., ?I?ve thought about killing myself?) without thoughts of ways to kills oneself/associated methods, intent, or plan during the assessment period.? Have you actually had any thoughts of killing yourself? Lifetime: Time He/She [place] Most Suicidal: ?no Past 1 month: no Please Describe if yes: N/A 3. Active Suicidal Ideation with Any Methods (Not Plan) without Intent to Act Subject endorses thoughts of suicide and has thought of at least one method during the assessment period.? This is different than a specific plan with time, place, or method details worked out (e.g., thought of method to kills self but not a specific plan).? Includes person who would say ?I thought about thanking an overdose, but I never made a specific plan as to when, where or how. I would actually do it, and I would never go through with it.? Have you been thinking about how you might do this? Lifetime: Time He/She [place] Most Suicidal: ? Past 1 month:? Please Describe if yes: 4. Active Suicidal Ideation with Some Intent to Act, without Specific Plan Active suicidal thoughts of kills oneself fand subject reports having some intent to act on such thoughts, as opposed to ?I have the thoughts but I definitely will not do anything about them.? Have you had these thoughts and had some intention of acting on them? Lifetime: Time He/She [place] Most Suicidal: Past 1 month: Please Describe if yes: 5. Active Suicidal Ideation with Specific Plan and Intent Thoughts of kills oneself with details of plan fully or partially worked out and subject has some intent to care it out. Have you started to work out or worked out the details of how to kill yourself? Do you intend to carry out this plan? Lifetime: Time He/She [place] Most Suicidal: Past 1 month: ??? Please Describe if yes: INTENSITY OF IDEATION The following feature should be rated with respect to the most sever type of ideation (i.e., 1-5 from above, with 1 being the least severe and 5 being the most severe). Ask about time he/she/they were feeling the most suicidal.? Lifetime - Most Severe Ideation: Type # (1-5): Description: Recent - Most Severe Ideation: Type # (1-5): Description: Frequency How many times have you had these thoughts? Lifetime: (1) Less than once a week??? (2) Once a week?? (3)? 2-5 times in week??? (4) Daily or almost daily??? (5) Many times each day Recent, Past 1 month:? (1) Less than once a week??? (2) Once a week?? (3)? 2-5 times in week??? (4) Daily or almost daily??? (5) Many times each day Duration When you have the thoughts how long do they last? Lifetime: (1) Fleeting - few seconds or minutes? (2) Less than 1 hour/some of the time? (3) 1-4 hours/a lot of time? 4) 4-8 hours/most of day? (5) More than 8 hours/persistent or continuous Recent, Past 1 month :? (1) Fleeting - few seconds or minutes? (2) Less than 1 hour/some of the time? (3) 1-4 hours/a lot of time? 4) 4-8 hours/most of day? (5) More than 8 hours/persistent or continuous Controllability Could/can you stop thinking about killing yourself or wanting to if you want to? Lifetime:? (1) Easily able to control thoughts?? (2) Can control thoughts with little difficulty??? (3) Can control thoughts with some difficulty??? 4) Can control thoughts with a lot of difficulty? (5) Unable to control thoughts?? (0) Does not attempt to control thoughts Recent, Past 1 month: (1) Easily able to control thoughts?? (2) Can control thoughts with little difficulty??? (3) Can control thoughts with some difficulty??? 4) Can control thoughts with a lot of difficulty? (5) Unable to control thoughts?? (0) Does not attempt to control thoughts Deterrents Are there things - anyone or anything (e.g., family, latter day, pain of ) - that stopped you from wanting to or acting on thoughts of committing suicide? Lifetime:? (1) Deterrents definitely stopped you from attempting suicide? (2) Deterrents probably stopped you?? (3) Uncertain that deterrents stopped you? (4) Deterrents most likely did not stop you? (5) Deterrents definitely did not stop you?? 0) Does not apply??? Recent:??? (1) Deterrents definitely stopped you from attempting suicide? (2) Deterrents probably stopped you?? (3) Uncertain that deterrents stopped you? (4) Deterrents most likely did not stop you? (5) Deterrents definitely did not stop you?? 0) Does not apply??? Reasons for Ideation What sort of reasons did you have for thinking about wanting to or killing yourself? Was it to end the pain or stop the way you were feeling (in other words you couldn?t go on living with this pain or how you were feeling) or was it to get attention, revenge or a reaction from others? Or both? Lifetime: (1) Completely to get attention, revenge or a reaction from?? (2) Mostly to get attention, revenge or a reaction from others? (3) Equally to get attention, revenge or a reaction from others? and to end/stop the pain?? ( 4) Mostly to end or stop the pain (you couldn?t go on living with the pain or how you were feeling)??? (5) Completely to end or stop the pain (you couldn?t go on living with the pain or? how you were feeling)??? (0)? Does not apply? Recent: (1) Completely to get attention, revenge or a reaction from?? (2) Mostly to get attention, revenge or a reaction from others? (3) Equally to get attention, revenge or a reaction from others? and to end/stop the pain??? (4) Mostly to end or stop the pain (you couldn?t go on living with the pain or how you were feeling)?? (5) Completely to end or stop the pain (you couldn?t go on living with the pain or? how you were feeling)?? (0)? Does not apply? SUICIDAL BEHAVIOR Actual Attempt: A potentially self-injurious act committed with at least some wish to , as a result of act.? Behavior was in part thought of as method to kill oneself.? Intent does not have to be 100%.? If there is any intent/desire to associated with the act, then it can be considered an actual suicide attempt.? There does not have to be any injury of harm, just the potential for injury or harm.? If person pulls trigger while gun is in mouth, but gun is broken so no injury results, this is considered an attempt.? Inferring intent:? Even if an individual denies intent/wish to , it may be inferred clinically from the behavior or circumstances.? For example, a highly lethal act that is clearly not an accident so no other intent but suicide can be inferred (e.g. gunshot to head, jumping from window of a high floor/story).? Also, if someone denies intent to , but they thought that what they did could be lethal, intent may be inferred.? Have you made a suicide attempt? Have you done anything to harm yourself? Have you done anything dangerous where you could have ? What did you do? Did you as a way to end your life? Did you want to (even a little) when you ? Were you trying to end your life when you ? Or did you think it was possible you could have from ? Or did you do it purely for other reasons/without ANY intention of killing yourself like to relieve stress, feel better, get sympathy, or get something else to happen)? (Self -Injurious Behavior without suicidal intent) Lifetime: no Past 3 months: no If yes, describe: N/A Total # of Attempts in His/Her Lifetime: N/A Total # of attempts in Past 3 months: N/A Has person engaged in Non-Suicidal Sefl-Injurious Behavior? Lifetime: yes Past 3 months: yes Interrupted Attempt:? When the person is interrupted (by an outside circumstance) from starting the potentially self-injurious act (if not for that, actual attempt would have occurred).? Overdose: Person has pills in hand but is stopped from ingesting. Once they ingest any pills, this becomes an attempt rather than an interrupted attempt. Shooting: Person has gun pointed toward self, gun is taken away by someone else, or is somehow prevented from pulling trigger. Once they pull the trigger, even if the gun fails to fire, it is an attempt. Jumping: Person is poised to jump, is grabbed and taken down from ledge.? Hanging: Person has noose around neck but has not yet started to hang self -is stopped from doing so.? Has there been a time when you started to do something to end your life but someone or something stopped you before you did anything? Lifetime: no Past 3 months: no If yes, describe: ?N/A Total # of interrupted attempts in His/Her Lifetime: N/A Total # of interrupted attempts in Past 3 months: N/A Aborted or Self-Interrupted Attempt:? When person begins to take steps toward making a suicide attempt, but stops themselves before they have actually engaged in any self-destructive behavior. Examples are like interrupted attempts, except that the individual stops him/herself, instead of being stopped by something else. Has there been a time when you started to do something to try to end your life, but you stopped yourself before you did anything? Lifetime: no Past 3 months: no If yes, describe: N/A Total # of aborted or self-interrupted attempts in His/Her Lifetime: N/A Total # of aborted or self-interrupted attempts in Past 3 months: N/A Preparatory Acts or Behavior:? Acts or preparation towards imminently making a suicide attempt. This can include anything beyond a verbalization or thought, such as assembling a specific method (e.g., buying pills, purchasing a gun) or preparing for one?s by suicide (e.g., giving things away, writing a suicide note). Have you taken any steps towards making a suicide attempt or preparing to kill yourself (such as collecting pills, getting a gun, giving valuables away or writing a suicide note)? Lifetime: no Past 3 months: no If yes, describe: N/A Total # of preparatory acts in His/Her Lifetime: N/A Total # of preparatory acts in Past 3 months: N/A Lethality/Medical Damage:??? 0.? No physical damage or very minor physical damage (e.g., surface scratches). 1.? Minor physical damage (e.g., lethargic speech; first-degree valdez; mild bleeding; sprains). 2.? Moderate physical damage; medical attention needed (e.g., conscious but sleepy, somewhat responsive; second-degree valdez; bleeding of major vessel). 3.? Moderately severe physical damage; medical hospitalization and likely intensive care required (e.g., comatose with reflexes intact; third-degree valdez less than 20% of body; extensive blood loss but can recover; major fractures). 4.? Severe physical damage; medical hospitalization with intensive care required (e.g., comatose without reflexes; third-degree valdez over 20% of body; extensive blood loss with unstable vital signs; major damage to a vital area). 5.? Most Recent attempt Date: Code: Most Lethal Attempt Date: Code: Initial/First Attempt Date: Code: Potential Lethality:? Only Answer if Actual Lethality=0 Likely lethality of actual attempt if no medical damage (the following examples, while having no actual medical damage, had potential for very serious lethality: put gun in mouth and pulled the trigger but gun fails to fire so no medical damage; laying on train tracks with oncoming train but pulled away before run over). 0 = Behavior not likely to result in injury 1 = Behavior likely to result in injury but not likely to cause 2 = Behavior likely to result in despite available medical care Most Recent Attempt Code: Most Lethal Attempt Code: Initial/First Attempt Code: Assessment Summary: due to patient's ability to be future-focused, patient's report of minimal SI, willingness to look into counseling, and consistent follow-up with medical staffing coordinator, patient able to be provided resources and discharged home. Spoke with doctor who agrees. Plan: provide resources and discharge home. Patient provided resources for local counseling agencies, [facility] Behavioral Health programming, and [facility]. Patient's contacted via phone to ensure feeling safe to take patient home and bring patient back with increase in struggles. Lucita Tejada, PROFILE SHAPER OPERATOR, RESIDENT SERVICE COORDINATOR
--- NOTE | 2024-12-11 17:46 | ED.RN ---
Pt called and said that [facility] pharmacy was out of lorazepam. Pt asked if we could send the Rx [facility]. Dr Tobar is doing this for the patient.
== END 2024-12-11 16:57 | disposition home or self-care (01) ==
PROVIDERS: Emergency Provider Emergency Medicine; PCP Family Medicine; Visit Provider Emergency Medicine
DX: F43.10 Post-traumatic stress disorder, unspecified (principal); F41.9 Anxiety disorder, unspecified; I10 Essential (primary) hypertension; M48.00 Spinal stenosis, site unspecified; F17.200 Nicotine dependence, unspecified, uncomplicated; M47.812 Spondylosis without myelopathy or radiculopathy, cervical region; Z79.899 Other long term (current) drug therapy; M54.2 Cervicalgia
CPT/HCPCS: 70450; 72125; 80053; 80307; 81001; 82077; 83690; 85025; 96374; 96375; 99283; A4216; J2405

== ENCOUNTER → 2024-12-30 | Outpatient (CLI) | payer MEDICARE, SELFPAY ==
[2024-12-30 15:13] LABS: Absolute Lymphocyte Count 2.99 X10^3/uL (0.83-4.51); Basophil# 0.07 X10^3/uL; Basophil% 0.7 % (0-1); Hematocrit 40.2 % (40-54); Hemoglobin 13.5 g/dL (13.0-16.5); Lymphocyte # 2.99 X10^3/ul (0.83-4.51); Lymphocyte % 29.8 % (19-41); Mean Corp Hgb Conc 33.6 g/dL (32-36); Mean Corpuscular Hgb 31.3 pg (27.0-32.0); Mean Corpuscular Volume 93.3 fL (80-94); Mean Platelet Vol. 9.6 fl (6.2-12.0); NRBC Flagged by Analyzer 0 % (0-5); Neutrophil # 6.03 X10^3/uL (2.7-7.7); Neutrophil % 60.1 % (47-70); Platelet Count 384 K/mm3 (150-450); RBC Distribution Width CV 12.3 % (11.6-14.6); RBC Distribution Width SD 42.7 fl (35.1-43.9); Red Blood Count 4.31 M/mm3 (4.6-6.2)
[2024-12-30 18:00] LABS: ALB/GLOB Ratio 1.3 RATIO (0.9-2.4); AST(SGOT) 27 U/L (<=37); Alanine Aminotransfer ALT/SGPT 26 U/L (<=46); Alkaline Phosphatase 121 U/L (40-129); Anion Gap 14 (5-15); BUN 9 mg/dL (4-19); BUN/Creat Ratio 10.4 RATIO (10-20); Calcium,Total 9.5 mg/dL (7.6-11.0); Carbon Dioxide 21.4 mmol/L (21.0-32.0); Chloride 99 mmol/L (98-108); Cholesterol 209 mg/dL (<=200); Creatinine, Serum 0.88 mg/dL (0.70-1.20); EST Glomerular Filtration Rate 95 (>60); Globulin 3.2 g/dL (2.2-4.2); Glucose 85 mg/dL (70-99); High Density Lipoprotein 46 mg/dL; Low Density Lipoprotein Calc. 128 mg/dL; Potassium 3.9 mmol/L (3.3-5.1); Protein, Total 7.2 g/dL (5.9-8.4); Sodium Level 135 mmol/L (133-145); Total Bilirubin 0.25 mg/dL (0.00-1.30); Triglycerides 175 mg/dL; Very Low Density Lipoprotein 35 mg/dL (5-40); cholesterol:hdl ratio screen 4.52
== END | disposition home or self-care (01) ==
LOC: MTLAB 11:25
PROVIDERS: PCP Family Medicine; Referring Provider Family Medicine; Visit Provider Family Medicine
DX: I10 Essential (primary) hypertension (principal); R53.83 Other fatigue
CPT/HCPCS: 36415; 80053; 80061; 84403; 84443; 85025

== ENCOUNTER → 2025-06-02 | Outpatient (CLI) | payer MEDICARE, SELFPAY ==
--- NOTE | 2025-06-02 11:03 | RAD_ITS ---
PROCEDURE: THORACIC SPINE 2 VIEWS 06/02/2025 REASON FOR EXAM: BACK SPASM TECHNIQUE: THORACIC SPINE 2 VIEWS COMPARISON: None FINDINGS: There is a 20% anterior compression deformity at T11 and T12, with chronic features. There is levoscoliosis of the upper thoracic region with a Almonte angle = 11 degrees from T2-7, apex T4. There is loss of disc height which is most severe at T12-L1. Osteopenia is noted. There is no visible atherosclerosis. Surgical clips are noted in the right upper quadrant. Hardware is partly visible in the lumbar spine. RAD/Thoracic Spine 2 Views IMPRESSION: There is a 20% anterior compression deformity at T11 and T12, with chronic feat ures. There is levoscoliosis of the upper thoracic region with a Al[place]te angle = 11 degr ees from T2-7, apex T4. There is loss of disc height which is most severe at T12-L1. Reading Location: [facility]
--- NOTE | 2025-06-02 11:03 | RAD_ITS ---
PROCEDURE: LUMBAR SPINE 2 OR 3 VIEWS 06/02/2025 REASON FOR EXAM: BACK SPASM TECHNIQUE: Lumbar spine two views COMPARISON: None FINDINGS: A device is noted in the right lower quadrant. There is hardware fusion from L1-5, with screws through the right and left SI joint. Radiopaque coils are noted. Surgical clips are present right upper quadrant. Osteopenia is noted. There is no spondylolisthesis. Vascular calcifications are present. RAD/Lumbar Spine 2 or 3 Views IMPRESSION: There is hardware in position which appears intact. Reading Location: [facility]
== END | disposition home or self-care (01) ==
LOC: MTRAD 11:01
PROVIDERS: PCP Family Medicine; Referring Provider Family Medicine; Visit Provider Family Medicine
DX: M62.830 Muscle spasm of back (principal)
CPT/HCPCS: 72070; 72100

== ENCOUNTER → 2025-09-01 | Outpatient (CLI) | payer MEDICARE, SELFPAY ==
[2025-09-01 12:58] LABS: Cholesterol 177 mg/dL (<=200); Low Density Lipoprotein Calc. 111 mg/dL; PSA,Total - Annual Screen 3.23 ng/mL (0.02-4.00); Triglycerides 125 mg/dL; Very Low Density Lipoprotein 25 mg/dL (5-40); cholesterol:hdl ratio screen 4.08
[2025-09-01 13:21] LABS: Anion Gap 10 (5-15); BUN 8 mg/dL (4-19); BUN/Creat Ratio 9.5 RATIO (10-20); Calcium,Total 9.4 mg/dL (7.6-11.0); Carbon Dioxide 22.7 mmol/L (21.0-32.0); Chloride 89 mmol/L (98-108); Glucose 92 mg/dL (70-99); Potassium 4.2 mmol/L (3.3-5.1)
== END | disposition home or self-care (01) ==
LOC: MFPLAB 10:54
PROVIDERS: PCP Family Medicine; Visit Provider Family Medicine
DX: Z12.5 Encounter for screening for malignant neoplasm of prostate (principal); I10 Essential (primary) hypertension
CPT/HCPCS: 36415; 80048; 80061; 84153; G0103